=== PATIENT | female | born 1965 | race Hispanic/Latino ===

== ENCOUNTER 2017-04-09 21:22 | Emergency (ER) | payer MEDICARE ==
[2017-04-09 22:33] LABS: APPEARANCE,URINE Cloudy (CLEAR); BILIRUBIN,URINE Negative (NEGATIVE); COLOR,URINE Dark Yellow (YELLOW); GLUCOSE, URINE (UA) Negative (NEGATIVE); KETONES,URINE Negative (NEGATIVE); LEUKOCYTE ESTERASE ,URINE Large (NEGATIVE); NITRATE,URINE Positive (NEGATIVE); OCCULT BLOOD,URINE Negative (NEGATIVE); PROTEIN,URINE Negative (NEGATIVE)
[2017-04-09] MEDS ORDERED: LIDOCAINE HCL-MPF 1% 2ML VIAL ONE (22:42)
[2017-04-09] MEDS ORDERED: CEFTRIAXONE SODIUM 1 GM ONE (22:42)
[2017-04-09] MEDS ORDERED: ACETAMINOPHEN-CODEINE ELIXIR 5 ML UDCUP ONE (22:43)
[2017-04-09 22:45] LABS: BACTERIA,URINE Moderate /HPF (None Seen); MUCUS,URINE Moderate LPF (None Seen); RBC,URINE 0-1 /HPF (0-1); SQUAMOUS EPITHELIAL CELL,UR Few /LPF (0-2)
== END 2017-04-09 23:00 | disposition home or self-care (01) ==
LOC: EDH 21:22
DX: N39.0 Urinary tract infection, site not specified (principal); G43.909 Migraine, unspecified, not intractable, without status migrainosus; N18.9 Chronic kidney disease, unspecified; M32.9 Systemic lupus erythematosus, unspecified; Z88.6 Allergy status to analgesic agent; Z79.899 Other long term (current) drug therapy
CPT/HCPCS: 81001; 96372; 99283; J0696; J3490

== ENCOUNTER 2017-04-11 09:53 | Emergency (ER) | payer MEDICARE ==
[2017-04-11] MEDS ORDERED: KETOROLAC TROMETHAMINE 30MG/ML ONE (10:17)
[2017-04-11 10:45] LABS: APPEARANCE,URINE Clear (CLEAR); BILIRUBIN,URINE Negative (NEGATIVE); COLOR,URINE Orange (YELLOW); GLUCOSE, URINE (UA) Negative (NEGATIVE); KETONES,URINE Negative (NEGATIVE); LEUKOCYTE ESTERASE ,URINE Small (NEGATIVE); NITRATE,URINE Positive (NEGATIVE); OCCULT BLOOD,URINE Negative (NEGATIVE); PROTEIN,URINE Negative (NEGATIVE)
[2017-04-11 10:59] LABS: CREATININE 1.2 mg/dL (0.5-1.5); POTASSIUM 4.5 mmol/L (3.5-5.1)
[2017-04-11 11:21] LABS: RBC,URINE 0-1 /HPF (0-1); WBC,URINE 0-1 /HPF (0-1)
[2017-04-11 11:22] LABS: BACTERIA,URINE Few /HPF (None Seen)
[2017-04-11 11:23] LABS: HYALINE CASTS, URINE 0-1 /LPF (0-1 /LPF)
[2017-04-11 11:54] LABS: BASOPHILS % (AUTO) 0.6 % (0.0-5.0); EOSINOPHILS % (AUTO) 1.1 % (0.0-8.0); HEMATOCRIT 36.4 % (36-48); LYMPHOCYTES % (AUTO) 14.7 % (21.0-51.0); MEAN CORPUSCULAR HEMOGLOBIN 33.2 pg (27.0-33.0); MEAN CORPUSCULAR HGB CONC 35.6 g/dL (32.0-36.0); MEAN CORPUSCULAR VOLUME 93.3 fL (79-99); MONOCYTES % (AUTO) 8.2 % (3.0-13.0); NEUTROPHILS % (AUTO) 75.4 % (40.0-77.0); PLATELET COUNT (AUTO) 213 K/uL (130-400); RED CELL DISTRIBUTION WIDTH 12.7 % (11.0-15.5); WHITE BLOOD COUNT (AUTO) 9.2 K/uL (4.8-10.8)
[2017-04-11] MEDS ORDERED: LIDOCAINE HCL-MPF 1% 2ML VIAL ONE (12:11)
[2017-04-11] MEDS ORDERED: CEFTRIAXONE SODIUM 1 GM ONE (12:12)
== END 2017-04-11 12:38 | disposition home or self-care (01) ==
LOC: EDH 09:53
DX: S93.504A Unspecified sprain of right lesser toe(s), initial encounter (principal); N30.00 Acute cystitis without hematuria; G43.909 Migraine, unspecified, not intractable, without status migrainosus; L93.0 Discoid lupus erythematosus; Z88.6 Allergy status to analgesic agent; W22.03XA Walked into furniture, initial encounter; Y93.89 Activity, other specified; Y92.89 Other specified places as the place of occurrence of the external cause; Y99.8 Other external cause status
CPT/HCPCS: 36415; 73660; 80048; 81001; 85025; 96372; 96374; 99285; J0696; J1885; J3490

== ENCOUNTER 2017-04-18 14:01 | Emergency (ER) | payer MEDICARE ==
[2017-04-18] MEDS ORDERED: SODIUM CHLORIDE 0.9% 1000ML 1,000 ML IV ONE (14:18)
[2017-04-18] MEDS ORDERED: MORPHINE SULFATE 4 MG/1ML SYG ONE (15:17)
[2017-04-18 15:23] LABS: BASOPHILS % (AUTO) 2.3 % (0.0-5.0); HEMATOCRIT 39.9 % (36-48); LYMPHOCYTES % (AUTO) 24.2 % (21.0-51.0); MEAN CORPUSCULAR HEMOGLOBIN 31.6 pg (27.0-33.0); MEAN CORPUSCULAR HGB CONC 34.4 g/dL (32.0-36.0); MEAN CORPUSCULAR VOLUME 91.8 fL (79-99); MONOCYTES % (AUTO) 8.1 % (3.0-13.0); NEUTROPHILS % (AUTO) 64.4 % (40.0-77.0); PLATELET COUNT (AUTO) 250 K/uL (130-400); RED BLOOD CELL COUNT(AUTO) 4.35 MIL/uL (4.00-5.50); RED CELL DISTRIBUTION WIDTH 12.2 % (11.0-15.5); WHITE BLOOD COUNT (AUTO) 5.8 K/uL (4.8-10.8)
[2017-04-18 15:30] LABS: APPEARANCE,URINE Clear (CLEAR); BILIRUBIN,URINE Negative (NEGATIVE); COLOR,URINE Yellow (YELLOW); GLUCOSE, URINE (UA) Negative (NEGATIVE); KETONES,URINE Negative (NEGATIVE); LEUKOCYTE ESTERASE ,URINE Trace (NEGATIVE); NITRATE,URINE Negative (NEGATIVE); OCCULT BLOOD,URINE Negative (NEGATIVE); PROTEIN,URINE Negative (NEGATIVE); UROBILINOGEN,URINE 0.2 mg/dL (0.2-1.0)
[2017-04-18 15:38] LABS: BACTERIA,URINE Rare /HPF (None Seen); RBC,URINE None Seen /HPF (0-1); SQUAMOUS EPITHELIAL CELL,UR 0-2 /LPF (0-2); WBC,URINE None Seen /HPF (0-1)
[2017-04-18 16:16] LABS: CREATININE 1.2 mg/dL (0.5-1.5); POTASSIUM 4.2 mmol/L (3.5-5.1)
[2017-04-18 16:21] LABS: ALBUMIN 4.4 g/dL (3.5-5.0); BILIRUBIN,TOTAL 0.3 mg/dL (0.2-1.0); TOTAL PROTEIN, SERUM 8.2 g/dL (6.0-8.3)
== END 2017-04-18 16:45 | disposition home or self-care (01) ==
LOC: EDH 14:01
DX: F11.23 Opioid dependence with withdrawal (principal); R10.9 Unspecified abdominal pain; N39.0 Urinary tract infection, site not specified; G43.909 Migraine, unspecified, not intractable, without status migrainosus; M32.9 Systemic lupus erythematosus, unspecified; Z88.5 Allergy status to narcotic agent
CPT/HCPCS: 36415; 74021; 76856; 80053; 81001; 85025; 87804 ×2; 96361; 96374; 99285; J2270; J7030

== ENCOUNTER → 2017-08-14 | Outpatient (CLI) | payer MEDICARE | END | disposition home or self-care (01) | LOC: RAH 10:00 | PROVIDERS: ATTEND Urology | DX: J84.10 Pulmonary fibrosis, unspecified (principal); R31.29 Other microscopic hematuria; M47.896 Other spondylosis, lumbar region | CPT/HCPCS: 74176 ==

== ENCOUNTER 2018-03-17 22:09 | Emergency (ER) | payer MEDICARE ==
[2018-03-17] MEDS ORDERED: ACETAMINOPHEN EXTRA STRENGTH 500 MG TABLET ONE (22:34)
== END 2018-03-17 22:43 | disposition home or self-care (01) ==
LOC: EDH 22:09
DX: S93.491A Sprain of other ligament of right ankle, initial encounter (principal); Z85.841 Personal history of malignant neoplasm of brain; Z88.5 Allergy status to narcotic agent; X50.0XXA Overexertion from strenuous movement or load, initial encounter; Y93.89 Activity, other specified; Y92.009 Unspecified place in unspecified non-institutional (private) residence as the place of occurrence of the external cause; Y99.8 Other external cause status
CPT/HCPCS: 73590; 73610

== ENCOUNTER 2018-08-31 17:56 | Inpatient (IN) | payer MEDICARE ==
[~2018-08-31] VITALS: Ht 154.9 cm; Wt 84.5 kg
[2018-08-31] MEDS ORDERED: SODIUM CHLORIDE 0.9% 1000ML 1,000 ML IV ONE (18:18)
[2018-08-31 18:38] LABS: BASOPHILS % (AUTO) 0.9 % (0.0-5.0); EOSINOPHILS % (AUTO) 1.7 % (0.0-8.0); HEMATOCRIT 35.7 % (36-48); LYMPHOCYTES % (AUTO) 31.6 % (21.0-51.0); MEAN CORPUSCULAR HEMOGLOBIN 32.7 pg (27.0-33.0); MEAN CORPUSCULAR HGB CONC 34.1 g/dL (32.0-36.0); MEAN CORPUSCULAR VOLUME 95.8 fL (79-99); MONOCYTES % (AUTO) 10.2 % (3.0-13.0); NEUTROPHILS % (AUTO) 55.6 % (40.0-77.0); PLATELET COUNT (AUTO) 160 K/uL (130-400); RED BLOOD CELL COUNT(AUTO) 3.72 MIL/uL (4.00-5.50); RED CELL DISTRIBUTION WIDTH 13.6 % (11.0-15.5); WHITE BLOOD COUNT (AUTO) 5.2 K/uL (4.8-10.8)
[2018-08-31 18:39] LABS: APPEARANCE,URINE Clear (CLEAR); BILIRUBIN,URINE Negative (NEGATIVE); COLOR,URINE Yellow (YELLOW); GLUCOSE, URINE (UA) Negative (NEGATIVE); KETONES,URINE Negative (NEGATIVE); LEUKOCYTE ESTERASE ,URINE Trace (NEGATIVE); NITRATE,URINE Negative (NEGATIVE); OCCULT BLOOD,URINE Negative (NEGATIVE); PROTEIN,URINE Negative (NEGATIVE)
[2018-08-31 18:45] LABS: CREATININE 1.3 mg/dL (0.5-1.5)
[2018-08-31 18:46] LABS: AMPHET/METH SCREEN,URINE NEGATIVE (NEGATIVE); BARBITURATE SCREEN, URINE NEGATIVE (NEGATIVE); BENZODIAZEPINES SCREEN,URINE POSITIVE (NEGATIVE); CANNABINOID SCREEN,URINE NEGATIVE (NEGATIVE); COCAINE SCREEN,URINE NEGATIVE (NEGATIVE); OPIATE SCREEN,URINE NEGATIVE (NEGATIVE); PHENCYCLIDINE SCREEN,URINE NEGATIVE (NEGATIVE)
[2018-08-31 18:49] LABS: RBC,URINE 0-1 /HPF (0-1)
[2018-08-31 18:49] LABS: INR 0.94 (0.85-1.15); PARTIAL THROMBOPLASTIN TIME 19.8 SEC (26.3-35.5); PROTHROMBIN TIME 9.9 SEC (9.6-11.6)
[2018-08-31 18:50] LABS: BACTERIA,URINE Few /HPF (None Seen); SQUAMOUS EPITHELIAL CELL,UR Rare /HPF (0-2)
[2018-08-31 18:51] LABS: MUCUS,URINE Rare LPF (None Seen)
[2018-08-31 18:52] LABS: ALBUMIN 3.6 g/dL (3.5-5.0); BILIRUBIN,TOTAL 0.2 mg/dL (0.2-1.0); TOTAL PROTEIN, SERUM 6.5 g/dL (6.0-8.3)
[2018-08-31] MEDS ORDERED: PROPOFOL 1000 MG/100 ML 100 ML IV ONE ×2 (19:45→22:16)
[2018-08-31 19:53] LABS: ABG BASE EXCESS -2.1 mmol/L (-2.0-3.0); ABG HCO3 21.9 mmol/L (21.0-28.0); ABG OXYGEN SATURATION 99.3 % (95.0-99.0); ABG PCO2 35 mmHg (32-45)
[2018-08-31] MEDS ORDERED: LORAZEPAM 2 MG/ML 1 ML VIAL ONE (20:14)
[2018-08-31] MEDS: SODIUM CHLORIDE 0.9% 1000ML 1,000 ML IV SCH (20:32)
[2018-08-31] MEDS ORDERED: ONDANSETRON HCL 4 MG/2 ML VIAL IV PRN (20:45)
[2018-08-31] MEDS ORDERED: ACETAMINOPHEN 325 MG TAB PO PRN (20:45)
[2018-08-31] MEDS: ENOXAPARIN SODIUM 40 MG/0.4 ML SYRINGE SQ SCH (21:00)
[2018-09-01] VITALS (28 sets, daily range): BP systolic 101–149; BP diastolic 62–97
[2018-09-01] MEDS ORDERED: PROPOFOL 1000 MG/100 ML 100 ML IV ONE (00:52)
[2018-09-01 06:40] LABS: CREATININE 1.1 mg/dL (0.5-1.5); POTASSIUM 3.1 mmol/L (3.5-5.1)
[2018-09-01 06:52] LABS: EOSINOPHILS % (AUTO) 0.7 % (0.0-8.0); HEMATOCRIT 35.6 % (36-48); LYMPHOCYTES % (AUTO) 16.4 % (21.0-51.0); MEAN CORPUSCULAR HEMOGLOBIN 32.9 pg (27.0-33.0); MEAN CORPUSCULAR HGB CONC 34.5 g/dL (32.0-36.0); MEAN CORPUSCULAR VOLUME 95.5 fL (79-99); MONOCYTES % (AUTO) 8.3 % (3.0-13.0); NEUTROPHILS % (AUTO) 73.6 % (40.0-77.0); NUCLEATED RED BLOOD CELLS 0.1 % (0.0-0.19); PLATELET COUNT (AUTO) 147 K/uL (130-400); RED BLOOD CELL COUNT(AUTO) 3.73 MIL/uL (4.00-5.50); RED CELL DISTRIBUTION WIDTH 13.2 % (11.0-15.5)
[2018-09-01] MEDS ORDERED: LIDOCAINE HCL-MPF 1% 2ML VIAL IVP PRN (09:30)
[2018-09-01] MEDS: SODIUM CHLORIDE 0.9% 1000ML 1,000 ML IV SCH ×2 (09:47→19:55)
[2018-09-01] MEDS: FAMOTIDINE/PF 20 MG/2 ML VIAL IV SCH (09:47)
[2018-09-01] MEDS: ENOXAPARIN SODIUM 40 MG/0.4 ML SYRINGE SQ SCH (09:47)
[2018-09-01] MEDS: POTASSIUM CHLORIDE 20MEQ/100ML 100 ML IV PRN ×2 (10:01→12:42)
[2018-09-01 10:17] LABS: ABG BASE EXCESS -0.3 mmol/L (-2.0-3.0); ABG HCO3 24.1 mmol/L (21.0-28.0); ABG OXYGEN SATURATION 97.3 % (95.0-99.0); ABG PCO2 39 mmHg (32-45)
[2018-09-01] MEDS: LEVOFLOXACIN 500 MG/D5W 100 ML 100 ML IV SCH ×2 (10:30→12:43)
[2018-09-01] MEDS: IPRATROPIUM/ALBUTEROL SULFATE 3 ML SOLUTION IH SCH ×3 (12:35→23:26)
[2018-09-01] MEDS: ACETAMINOPHEN 325 MG TAB PO PRN ×3 (14:31→23:05)
[2018-09-01] MEDS ORDERED: POTASSIUM CHLORIDE 10% ELIXIR 20 MEQ/15 ML UDCUP PO PRN (20:00)
[2018-09-01] MEDS: POTASSIUM CHLORIDE 20 MEQ ERTAB PO PRN ×2 (20:32→23:02)
[2018-09-02 03:42] VITALS: BP 124/75
[2018-09-02 04:12] LABS: BASOPHILS % (AUTO) 0.5 % (0.0-5.0); EOSINOPHILS % (AUTO) 0.6 % (0.0-8.0); HEMATOCRIT 32.7 % (36-48); MEAN CORPUSCULAR HEMOGLOBIN 33.2 pg (27.0-33.0); MEAN CORPUSCULAR HGB CONC 34.6 g/dL (32.0-36.0); MEAN CORPUSCULAR VOLUME 95.8 fL (79-99); MONOCYTES % (AUTO) 9.7 % (3.0-13.0); NEUTROPHILS % (AUTO) 75.2 % (40.0-77.0); PLATELET COUNT (AUTO) 137 K/uL (130-400); RED BLOOD CELL COUNT(AUTO) 3.41 MIL/uL (4.00-5.50); RED CELL DISTRIBUTION WIDTH 13.5 % (11.0-15.5); WHITE BLOOD COUNT (AUTO) 8.7 K/uL (4.8-10.8)
[2018-09-02 04:17] LABS: POTASSIUM 3.9 mmol/L (3.5-5.1)
[2018-09-02] MEDS: ACETAMINOPHEN 325 MG TAB PO PRN (04:54)
[2018-09-02] MEDS: IPRATROPIUM/ALBUTEROL SULFATE 3 ML SOLUTION IH SCH (06:35)
[2018-09-02 07:00] VITALS: BP 129/80
[2018-09-02] MEDS: FAMOTIDINE/PF 20 MG/2 ML VIAL IV SCH (08:23)
--- NOTE | 2018-09-02 09:00 | NUR ---
DYSPHAGIA EVAL COMPLETE. -S/S OF ASPIRATION. RECOMMEND REGULAR, THIN LIQUID DIET; PILLS WHOLE WITH LIQUIDS. PATIENT INFORMATION: Pt IS A 53 Y.O. FEMALE REFERRED FOR A BEDSIDE DYSPHAGIA EVALUATION SECONDARY TO S/P EXTUBATION. Pt AAOX3 AND COOPERATIVE DURING THE EVALUATION. Pt REPORTS THAT SHE HAS BEEN DOING WELL SINCE EXTUBATION. Pt CURRENTLY ON CLEAR LIQUID DIET. Pt CURRENTLY ADMITTED SECONDARY TO ALTERED MENTAL STATUS, HYPOXIA, BRADYCARDIA. Pt HAS A PAST MEDICAL HISTORY SIGNIFICANT FOR LUPUS, BRAIN TUMOR, MIGRAINE, RHEUMATOID ARTHRITIS, CONSTIPATION, URINARY INCONTINENCE, DEPRESSION/ANXIETY. EVALUATION: SWALLOW FUNCTION AND EFFICIENCY WITHIN FUNCTIONAL LIMITS. ORAL MOTOR STRENGTH, COORDINATION, AND ROM WITHIN FUNCTIONAL LIMITS. LARYNGEAL ELEVATION/EXCURSION STRONG WITH TIMELY PHARYNGEAL RESPONSE. NO OVERT SIGNS OR SYMPTOMS OF ASPIRATION PRESENT AT BEDSIDE. VOCAL QUALITY CLEAR WITH NO THROAT CLEAR OR COUGH RESPONSE PRESENT. RECOMMENDATIONS: 1. REGULAR TEXTURE, THIN LIQUID DIET; PILLS WHOLE WITH LIQUIDS. 2. COMPENSATORY STRATEGIES (PROPHYLAXIS): *SEATED AT 90 DEGREE ANGLE G-CODES SWALLOWING: [id number] Addendum: 09/02/18 at [address] Amended: Links added.
[2018-09-02] MEDS ORDERED: ENOXAPARIN SODIUM 40 MG/0.4 ML SYRINGE SQ SCH (10:00)
[2018-09-02 10:31] VITALS: BP 132/84
--- NOTE | 2018-09-02 14:33 | NUR ---
DC PLAN PATIENT DISCHARGED HOME ALREADY GONE NO NEEDS VERBALIZED BY NURSING STAFF. Addendum: 09/02/18 at 1434 by SANJUANITA LECHUGA RN CM Amended: Links added.
== END 2018-09-02 13:03 | disposition home or self-care (01) | DRG 917 ==
LOC: EDH 17:56 → EDHIP 20:10 → 2CH 09-01 07:58 → 2AH 09-01 18:53
PROVIDERS: ADMIT Internal Medicine; ATTEND Internal Medicine
PROC: 5A1935Z Respiratory Ventilation, Less than 24 Consecutive Hours (ICD-10-PCS; principal; 2018-08-31)
PROC: 0BH17EZ Insertion of Endotracheal Airway into Trachea, Via Natural or Artificial Opening (ICD-10-PCS; 2018-08-31)
DX: T40.601A Poisoning by unspecified narcotics, accidental (unintentional), initial encounter (principal); J96.01 Acute respiratory failure with hypoxia; R00.1 Bradycardia, unspecified; M06.9 Rheumatoid arthritis, unspecified; F32.9 Major depressive disorder, single episode, unspecified; F41.9 Anxiety disorder, unspecified; G43.909 Migraine, unspecified, not intractable, without status migrainosus; G89.4 Chronic pain syndrome; K59.00 Constipation, unspecified; R32 Unspecified urinary incontinence; M32.9 Systemic lupus erythematosus, unspecified; Z88.5 Allergy status to narcotic agent; Z88.8 Allergy status to other drugs, medicaments and biological substances; Y92.89 Other specified places as the place of occurrence of the external cause
CPT/HCPCS: 31500; 36415; 36600; 70450; 71045; 80048; 80053; 80305; 81001; 82550; 82803; 84132; 84484; 85025; 85610; 85730; 92610; 93005; 94002; 94003; 94640; 94664; 99291; G0378; J1650; J1956; J2060; J2704; J3480; J3490; J7030

== ENCOUNTER → 2019-03-02 | Outpatient (CLI) | payer MEDICARE | END | disposition home or self-care (01) | LOC: RAH 08:43 | PROVIDERS: ATTEND Physician Assistant Medical | DX: N64.4 Mastodynia (principal); N63.10 Unspecified lump in the right breast, unspecified quadrant | CPT/HCPCS: 76641; 77066 ==

== ENCOUNTER 2019-06-29 23:26 | Inpatient (IN) | payer MEDICARE ==
[~2019-06-29] VITALS: Ht 154.9 cm; Wt 86.8 kg
[2019-06-30] VITALS (7 sets, daily range): BP systolic 109–156; BP diastolic 61–85
[2019-06-30] MEDS ORDERED: ALBUTEROL INHALER 90MCG/INH IH ONE (00:15)
[2019-06-30] MEDS ORDERED: AZITHROMYCIN 500MG+NS 250ML 250 ML IV ONE (00:15)
[2019-06-30] MEDS ORDERED: CEFTRIAXONE SODIUM 2 GM VIAL ONE (00:15)
[2019-06-30 01:14] LABS: BASOPHILS % (AUTO) 0.5 % (0.0-5.0); EOSINOPHILS % (AUTO) 1.6 % (0.0-8.0); HEMATOCRIT 37.3 % (36-48); LYMPHOCYTES % (AUTO) 27.8 % (21.0-51.0); MEAN CORPUSCULAR HGB CONC 34.6 g/dL (32.0-36.0); MEAN CORPUSCULAR VOLUME 92.6 fL (79-99); MONOCYTES % (AUTO) 13.8 % (3.0-13.0); NEUTROPHILS % (AUTO) 56.2 % (40.0-77.0); PLATELET COUNT (AUTO) 232 K/uL (130-400); RED BLOOD CELL COUNT(AUTO) 4.03 MIL/uL (4.00-5.50); RED CELL DISTRIBUTION WIDTH 12.6 % (11.0-15.5); WHITE BLOOD COUNT (AUTO) 7.5 K/uL (4.8-10.8)
[2019-06-30 01:16] LABS: BILIRUBIN,URINE Negative (NEGATIVE); COLOR,URINE Yellow (YELLOW); GLUCOSE, URINE (UA) Negative (NEGATIVE); KETONES,URINE Negative (NEGATIVE); LEUKOCYTE ESTERASE ,URINE Negative (NEGATIVE); NITRATE,URINE Negative (NEGATIVE); OCCULT BLOOD,URINE Negative (NEGATIVE); PROTEIN,URINE Negative (NEGATIVE); UROBILINOGEN,URINE 0.2 mg/dL (0.2-1.0)
[2019-06-30 01:17] LABS: APPEARANCE,URINE CLEAR (CLEAR)
[2019-06-30 01:29] LABS: ABG BASE EXCESS -2.1 mmol/L (-2.0-3.0); ABG HCO3 22.3 mmol/L (21.0-28.0); ABG OXYGEN SATURATION 93.3 % (95.0-99.0); ABG PCO2 37 mmHg (32-45)
[2019-06-30 01:30] LABS: INR 0.89 (0.85-1.15); PARTIAL THROMBOPLASTIN TIME 23.8 SEC (26.3-35.5); PROTHROMBIN TIME 9.7 SEC (9.6-11.6)
[2019-06-30 01:39] LABS: ALANINE AMINOTRANSFERASE 68 U/L (12-78); ALBUMIN 4.2 g/dL (3.5-5.0); ASPARTATE AMINOTRANSFERASE 47 U/L (10-37); BILIRUBIN,TOTAL 0.4 mg/dL (0.2-1.0); CARBON DIOXIDE 25 mmol/L (21-32); CHLORIDE 99 mmol/L (101-111); CREATINE KINASE, TOTAL 118 U/L (21-232); CREATININE 1.5 mg/dL (0.5-1.5); GLOMERULAR FILTR. RATE CALC 38 mL/min (>60); GLUCOSE,RANDOM 116 mg/dL (70-105); LIPASE 159 U/L (114-286); POTASSIUM 3.3 mmol/L (3.5-5.1); SODIUM SERUM 135 mmol/L (136-145); TOTAL PROTEIN, SERUM 7.7 g/dL (6.0-8.3); UREA NITROGEN, BLOOD 23 mg/dL (7-18)
[2019-06-30 01:41] LABS: B-TYPE NATRIURETIC PEPTIDE < 5 pg/mL (0-100)
[2019-06-30] MEDS: AZITHROMYCIN 500MG+NS 250ML 250 ML IV SCH (03:45)
[2019-06-30] MEDS ORDERED: POTASSIUM CHLORIDE 10% ELIXIR 20 MEQ/15 ML UDCUP PO PRN (03:45)
[2019-06-30] MEDS: SODIUM CHLORIDE 0.9% 1000ML 1,000 ML IV SCH (03:45)
[2019-06-30] MEDS ORDERED: POTASSIUM CHLORIDE 10MEQ/100ML 100 ML IV PRN (03:45)
[2019-06-30] MEDS ORDERED: ACETAMINOPHEN 325 MG TAB PO PRN (03:45)
[2019-06-30] MEDS ORDERED: LIDOCAINE HCL-MPF 1% 2ML VIAL IV PRN (03:45)
[2019-06-30] MEDS ORDERED: MAGNESIUM 2GM PREMIX 50ML 50 ML IV PRN (03:45)
[2019-06-30] MEDS ORDERED: ONDANSETRON HCL 4 MG/2 ML VIAL IV PRN ×2 (03:45→04:15)
[2019-06-30] MEDS ORDERED: ALBUTEROL INHALER 90MCG/INH IH PRN (03:45)
[2019-06-30] MEDS: NITROGLYCERIN 1GM/1 INCH PACKET TD SCH ×3 (03:45→19:45)
[2019-06-30] MEDS ORDERED: HYDRALAZINE HCL 20 MG/ML VIAL IV PRN (03:45)
[2019-06-30] MEDS ORDERED: POTASSIUM CHLORIDE 10% ELIXIR 20 MEQ/15 ML UDCUP ONE (05:16)
[2019-06-30] MEDS ORDERED: NITROGLYCERIN 1GM/1 INCH PACKET TD ONE (05:16)
[2019-06-30] MEDS ORDERED: ACETAMINOPHEN 325 MG TAB ONE (05:24)
[2019-06-30] MEDS: CEFTRIAXONE SODIUM 1 GM IVP SCH ×2 (06:18→16:37)
--- NOTE | 2019-06-30 06:19 | NUR ---
patient arrived from ER, awake alert and oriented. Pt is stable, no complains of being in distress or in any forms of pain. did not bring home meds, patient stated partner will bring home meds later today. will pass to am nurse
[2019-06-30 07:10] LABS: BASOPHILS % (AUTO) 0.4 % (0.0-5.0); EOSINOPHILS % (AUTO) 1.2 % (0.0-8.0); HEMATOCRIT 35.2 % (36-48); LYMPHOCYTES % (AUTO) 20.8 % (21.0-51.0); MEAN CORPUSCULAR HEMOGLOBIN 32.2 pg (27.0-33.0); MEAN CORPUSCULAR HGB CONC 34.7 g/dL (32.0-36.0); MEAN CORPUSCULAR VOLUME 92.9 fL (79-99); MONOCYTES % (AUTO) 13.5 % (3.0-13.0); NEUTROPHILS % (AUTO) 63.9 % (40.0-77.0); PLATELET COUNT (AUTO) 227 K/uL (130-400); RED BLOOD CELL COUNT(AUTO) 3.79 MIL/uL (4.00-5.50); RED CELL DISTRIBUTION WIDTH 12.7 % (11.0-15.5); WHITE BLOOD COUNT (AUTO) 8.9 K/uL (4.8-10.8)
[2019-06-30 07:32] LABS: CHOLESTEROL 177 mg/dL (<200); CREATINE KINASE, TOTAL 81 U/L (21-232); HDL CHOLESTEROL 35 mg/dL (35-85); LDL DIRECT 112 mg/dL (0-99); MYOGLOBIN 57 ng/mL (10-92); TRIGLYCERIDES 173 mg/dL (30-200); TROPONIN I < 0.04 ng/mL (0.00-0.06)
[2019-06-30 07:33] LABS: ALBUMIN 3.6 g/dL (3.5-5.0); BILIRUBIN,TOTAL 0.3 mg/dL (0.2-1.0); CREATININE 1.4 mg/dL (0.5-1.5); POTASSIUM 3.1 mmol/L (3.5-5.1)
[2019-06-30 07:38] LABS: HEMOGLOBIN A1C 5.8 % (4.0-6.0)
[2019-06-30] MEDS: FAMOTIDINE/PF 20 MG/2 ML VIAL IV SCH ×2 (07:41→20:31)
[2019-06-30] MEDS ORDERED: PHARMACY COMMUNICATION MISC SCH (08:00)
[2019-06-30] MEDS: ASPIRIN 81MG TAB.CHEW PO SCH (08:08)
[2019-06-30] MEDS: MORPHINE SULFATE 2 MG/ML 1ML SYG IV PRN (08:27)
[2019-06-30] MEDS: ALBUTEROL INHALER 90MCG/INH IH SCH ×3 (08:27→16:54)
[2019-06-30 08:49] LABS: LACTATE DEHYDROGENASE 251 U/L (81-234)
[2019-06-30] MEDS ORDERED: FAMOTIDINE/PF 20 MG/2 ML VIAL IV SCH (09:00)
[2019-06-30] MEDS: POTASSIUM CHLORIDE 20 MEQ ERTAB PO PRN ×2 (09:07→12:22)
[2019-06-30] MEDS: ACETAMINOPHEN 325 MG TAB PO PRN ×2 (12:32→19:02)
[2019-06-30 12:43] LABS: CREATINE KINASE, TOTAL 97 U/L (21-232); MYOGLOBIN 53 ng/mL (10-92); TROPONIN I < 0.04 ng/mL (0.00-0.06)
--- NOTE | 2019-06-30 13:52 | NUR ---
DR. Imtiaz HANNON SPEAKING WITH PT. AND EXPLAINING PLAN OF CARE/ANSWERING QUESTIONS.
--- NOTE | 2019-06-30 14:35 | NUR ---
[facility] CM spoke to pt's daughter Avril [phone] discussed dc plans. Pt is independent prior to admission, lives at home alone, daughter and son lives close by. Pt has a provider daily unable to recall number of hours, walker, shower chair, nebulizer machine, home health unable to recall company name. Denies any other equipments/services. Feels safe to go back home, son and daughter able to assist with transportation and needs as necessary. DC plan to home once stable. CM to cont to follow up. Addendum: 06/30/19 at 1438 by MELL SOUZA LVN CM Amended: Links added.
[2019-06-30] MEDS ORDERED: TIZANIDINE HCL 2 MG TABLET PO PRN (15:15)
[2019-06-30] MEDS ORDERED: TRAMADOL HCL 50 MG TABLET PO PRN (15:15)
[2019-06-30] MEDS ORDERED: NAPROXEN 500 MG TABLET PO PRN (15:15)
[2019-06-30] MEDS ORDERED: MECLIZINE HCL 25 MG TABLET PO PRN (15:15)
[2019-06-30] MEDS ORDERED: NAPR500T6 PO (15:33)
[2019-06-30] MEDS ORDERED: AMLO2.5T4 PO (15:33)
[2019-06-30] MEDS ORDERED: HYDR200T82 PO (15:33)
[2019-06-30] MEDS ORDERED: FOLI1TAB85 PO (15:33)
[2019-06-30] MEDS ORDERED: ALPR2TAB7 PO (15:33)
[2019-06-30] MEDS ORDERED: TIZA4CAP8 PO (15:33)
[2019-06-30] MEDS ORDERED: TOPI200C6 PO (15:33)
[2019-06-30] MEDS ORDERED: CEVI30CA7 PO (15:33)
[2019-06-30] MEDS ORDERED: HYDR-2534 PO (15:33)
[2019-06-30] MEDS ORDERED: VITAMIN D2 PO (15:33)
[2019-06-30] MEDS ORDERED: TRAZ-187 PO (15:33)
[2019-06-30] MEDS ORDERED: SUMA100T16 PO (15:33)
[2019-06-30] MEDS ORDERED: VORT5TAB PO (15:33)
[2019-06-30] MEDS ORDERED: TRAM50TA4 PO (15:33)
[2019-06-30] MEDS ORDERED: BREX1TAB PO (15:33)
[2019-06-30] MEDS ORDERED: ATOR20TA65 PO (15:33)
[2019-06-30] MEDS ORDERED: MECL-160 PO (15:33)
[2019-06-30] MEDS ORDERED: LUBI24CA2 PO (15:33)
[2019-06-30] MEDS ORDERED: ONDA8TAB65 PO ×2 (15:33→19:27)
[2019-06-30] MEDS ORDERED: EREN70AU2 SQ (15:33)
[2019-06-30] MEDS ORDERED: DULO30CA2 PO (15:33)
[2019-06-30] MEDS: ALPRAZOLAM 1 MG TAB PO SCH ×2 (16:30→20:30)
[2019-06-30] MEDS ORDERED: ALPRAZOLAM 1 MG TAB ONE (16:32)
[2019-06-30] MEDS ORDERED: ONDANSETRON 4 MG TABLET PO PRN (16:45)
[2019-06-30] MEDS: SUMATRIPTAN SUCCINATE 25 MG TABLET PO SCH (16:46)
[2019-06-30] MEDS: LUBIPROSTONE 24 MCG CAP PO SCH (20:30)
[2019-06-30] MEDS: METHYLPREDNISOLONE SOD SUCC 40MG/ML 1ML IVP SCH (20:30)
[2019-06-30] MEDS: TRAZODONE HCL 100 MG TABLET PO SCH (20:30)
[2019-06-30] MEDS: ATORVASTATIN CALCIUM 20 MG TABLET PO SCH (20:30)
[2019-06-30] MEDS: CEVIMELINE HCL 30 MG PO SCH (20:50)
[2019-06-30] MEDS ORDERED: ALPRAZOLAM 1 MG TAB PO SCH (21:00)
[2019-07-01] MEDS: NITROGLYCERIN 1GM/1 INCH PACKET TD SCH ×3 (03:11→20:40)
[2019-07-01 04:06] VITALS: BP 110/69
[2019-07-01] MEDS: CEFTRIAXONE SODIUM 1 GM IVP SCH ×2 (04:23→13:51)
[2019-07-01] MEDS: AZITHROMYCIN 500MG+NS 250ML 250 ML IV SCH (04:23)
[2019-07-01] MEDS: SODIUM CHLORIDE 0.9% 1000ML 1,000 ML IV SCH (04:24)
[2019-07-01 05:39] LABS: CREATININE 1.3 mg/dL (0.5-1.5); MAGNESIUM 2.3 mg/dL (1.80-2.40); POTASSIUM 3.7 mmol/L (3.5-5.1)
[2019-07-01 07:48] LABS: ABG BASE EXCESS -3.3 mmol/L (-2.0-3.0); ABG HCO3 21.4 mmol/L (21.0-28.0); ABG OXYGEN SATURATION 95.2 % (95.0-99.0); ABG PCO2 38 mmHg (32-45)
[2019-07-01 08:00] VITALS: BP 138/67
--- NOTE | 2019-07-01 08:40 | NUR ---
SITTING UP IN BED WITH HOB AT SEMI-COOPER'S POSITION, RESP.'S EVEN AND UNLABORED. ON ROOM AIR. DENIES ANY CURRENT SOB, DENIES ANY CURRENT PAIN. ABD SOFT WITH (+) BOWEL SOUNDS, DENIES ANY C/O N/V. VOIDS, W/O C/O. COMPLETE ASSESSMENT DONE. CALL LIGHT WITHIN REACH, VERBALIZED ABILITY TO USE. BED LOW, SIDE RAILS UP X2.
[2019-07-01] MEDS: Vitamin B Complex/Vit C/Folic Acid PO SCH (08:44)
[2019-07-01] MEDS: METHYLPREDNISOLONE SOD SUCC 40MG/ML 1ML IVP SCH ×2 (08:44→20:39)
[2019-07-01] MEDS: HYDROXYCHLOROQUINE SULFATE 200 MG TAB PO SCH (08:44)
[2019-07-01] MEDS: FAMOTIDINE/PF 20 MG/2 ML VIAL IV SCH ×2 (08:44→20:39)
[2019-07-01] MEDS: ASPIRIN 81MG TAB.CHEW PO SCH (08:45)
[2019-07-01] MEDS: HYDROCHLOROTHIAZIDE 25 MG TABLET PO SCH (08:46)
[2019-07-01] MEDS: AMLODIPINE BESYLATE 2.5 MG TAB PO SCH (08:46)
[2019-07-01] MEDS: TOPIRAMATE 100 MG TAB PO SCH (08:46)
[2019-07-01] MEDS: SUMATRIPTAN SUCCINATE 25 MG TABLET PO SCH ×2 (08:46→09:00)
[2019-07-01] MEDS: ALPRAZOLAM 1 MG TAB PO SCH ×3 (08:46→20:39)
[2019-07-01] MEDS: DULOXETINE HCL 30 MG CAP PO SCH (08:46)
[2019-07-01] MEDS: LUBIPROSTONE 24 MCG CAP PO SCH ×2 (08:46→20:40)
[2019-07-01] MEDS: VORTIOXETINE HYDROBROMIDE 5 MG PO SCH (08:47)
[2019-07-01] MEDS: CEVIMELINE HCL 30 MG PO SCH ×2 (08:47→20:41)
[2019-07-01] MEDS: ALBUTEROL INHALER 90MCG/INH IH SCH ×5 (08:47→23:45)
[2019-07-01] MEDS: BREXPIPRAZOLE 1 MG PO SCH (08:47)
[2019-07-01] MEDS ORDERED: ERGOCALCIFEROL (VITAMIN D2) 50,000 UNIT CAPSULE PO SCH (09:00)
--- NOTE | 2019-07-01 09:49 | NUR ---
EMOTIONAL SUPPORT SW recd call from pt who was crying and expressed concerns for care she recd. Sw provided emotional support and contacted Kristie Patel, Pt Advocate to f/u with pt.
[2019-07-01 12:32] VITALS: BP 133/81
[2019-07-01] MEDS: MORPHINE SULFATE 2 MG/ML 1ML SYG IV PRN (14:11)
[2019-07-01 16:37] VITALS: BP 132/76
[2019-07-01 19:38] VITALS: BP 134/72
[2019-07-01] MEDS: ATORVASTATIN CALCIUM 20 MG TABLET PO SCH (20:39)
[2019-07-01] MEDS: TRAZODONE HCL 100 MG TABLET PO SCH (20:40)
[2019-07-01 23:50] VITALS: BP 132/90
[2019-07-02] MEDS: MORPHINE SULFATE 2 MG/ML 1ML SYG IV PRN (00:57)
[2019-07-02] MEDS: NITROGLYCERIN 1GM/1 INCH PACKET TD SCH ×2 (03:45→11:45)
[2019-07-02] MEDS: ALBUTEROL INHALER 90MCG/INH IH SCH (03:45)
[2019-07-02] MEDS: AZITHROMYCIN 500MG+NS 250ML 250 ML IV SCH (04:18)
[2019-07-02] MEDS: CEFTRIAXONE SODIUM 1 GM IVP SCH (04:18)
[2019-07-02 04:22] VITALS: BP 127/67
[2019-07-02 05:11] LABS: BASOPHILS % (AUTO) 0.3 % (0.0-5.0); LYMPHOCYTES % (AUTO) 9.7 % (21.0-51.0); MEAN CORPUSCULAR HEMOGLOBIN 32.2 pg (27.0-33.0); MEAN CORPUSCULAR HGB CONC 33.6 g/dL (32.0-36.0); MEAN CORPUSCULAR VOLUME 95.7 fL (79-99); MONOCYTES % (AUTO) 7.1 % (3.0-13.0); NEUTROPHILS % (AUTO) 82.4 % (40.0-77.0); PLATELET COUNT (AUTO) 260 K/uL (130-400); RED BLOOD CELL COUNT(AUTO) 3.76 MIL/uL (4.00-5.50); RED CELL DISTRIBUTION WIDTH 13.7 % (11.0-15.5); WHITE BLOOD COUNT (AUTO) 11.1 K/uL (4.8-10.8)
[2019-07-02 05:31] LABS: CREATININE 1.1 mg/dL (0.5-1.5); CRP QUANTITATIVE 5.6 mg/L (0.00-9.0); MAGNESIUM 2.2 mg/dL (1.80-2.40); PHOSPHORUS 2.3 mg/dL (2.5-4.9); POTASSIUM 3.9 mmol/L (3.5-5.1)
[2019-07-02 08:00] VITALS: BP 126/81
[2019-07-02] MEDS ORDERED: FAMOTIDINE 20MG TAB 20 MG TAB ONE (08:31)
[2019-07-02] MEDS: METHYLPREDNISOLONE SOD SUCC 40MG/ML 1ML IVP SCH (08:35)
[2019-07-02] MEDS: TOPIRAMATE 100 MG TAB PO SCH (08:36)
[2019-07-02] MEDS: HYDROCHLOROTHIAZIDE 25 MG TABLET PO SCH (08:36)
[2019-07-02] MEDS: ASPIRIN 81MG TAB.CHEW PO SCH (08:36)
[2019-07-02] MEDS: LUBIPROSTONE 24 MCG CAP PO SCH (08:36)
[2019-07-02] MEDS: Vitamin B Complex/Vit C/Folic Acid PO SCH (08:36)
[2019-07-02] MEDS: DULOXETINE HCL 30 MG CAP PO SCH (08:37)
[2019-07-02] MEDS: SUMATRIPTAN SUCCINATE 25 MG TABLET PO SCH (08:37)
[2019-07-02] MEDS: CEVIMELINE HCL 30 MG PO SCH (08:37)
[2019-07-02] MEDS: ALPRAZOLAM 1 MG TAB PO SCH ×2 (08:37→14:33)
[2019-07-02] MEDS: AMLODIPINE BESYLATE 2.5 MG TAB PO SCH (08:37)
[2019-07-02] MEDS: HYDROXYCHLOROQUINE SULFATE 200 MG TAB PO SCH (08:37)
[2019-07-02] MEDS: BREXPIPRAZOLE 1 MG PO SCH (08:38)
[2019-07-02] MEDS: FAMOTIDINE/PF 20 MG/2 ML VIAL IV SCH (08:38)
[2019-07-02] MEDS: VORTIOXETINE HYDROBROMIDE 5 MG PO SCH (08:38)
[2019-07-02 12:27] VITALS: BP 126/71
--- NOTE | 2019-07-02 13:00 | NUR ---
PATIENT DID NOT BECOME SOB OR REQUIRE O2 WHEN WALKING IN ROOM DURING EVALUATION BY RT FOR HOME O2. PATIENT O2 SAT >95% ON RA WHILE TALKING
[2019-07-30] MEDS ORDERED: ERENUMAB AOOE 140 MG SQ SCH (09:00)
== END 2019-07-02 15:54 | disposition home or self-care (01) | DRG 193 ==
LOC: EDH 23:26 → EDHIP 06-30 04:08 → 2DH 06-30 06:10
PROVIDERS: ADMIT Internal Medicine; ATTEND Internal Medicine
DX: J18.1 Lobar pneumonia, unspecified organism (principal); J96.01 Acute respiratory failure with hypoxia; J44.1 Chronic obstructive pulmonary disease with (acute) exacerbation; J44.0 Chronic obstructive pulmonary disease with (acute) lower respiratory infection; N17.9 Acute kidney failure, unspecified; F13.20 Sedative, hypnotic or anxiolytic dependence, uncomplicated; F41.9 Anxiety disorder, unspecified; G43.909 Migraine, unspecified, not intractable, without status migrainosus; N18.3 Chronic kidney disease, stage 3 (moderate); E87.6 Hypokalemia; F32.9 Major depressive disorder, single episode, unspecified; M32.9 Systemic lupus erythematosus, unspecified; M35.00 Sjogren syndrome, unspecified; R32 Unspecified urinary incontinence; E11.22 Type 2 diabetes mellitus with diabetic chronic kidney disease; E66.9 Obesity, unspecified; I12.9 Hypertensive chronic kidney disease with stage 1 through stage 4 chronic kidney disease, or unspecified chronic kidney disease; R68.3 Clubbing of fingers; E78.5 Hyperlipidemia, unspecified; M06.9 Rheumatoid arthritis, unspecified; Z86.011 Personal history of benign neoplasm of the brain; Z03.818 Encounter for observation for suspected exposure to other biological agents ruled out; Z82.3 Family history of stroke; Z83.3 Family history of diabetes mellitus; Z98.51 Tubal ligation status; Z88.5 Allergy status to narcotic agent; Z68.36 Body mass index [BMI] 36.0-36.9, adult
CPT/HCPCS: 36415; 36600; 71045; 80048; 80053; 80061; 81003; 82550; 82728; 82803; 83036; 83605; 83615; 83690; 83735; 83874; 83880; 84100; 84145; 84484; 85025; 85378; 85610; 85651; 85730; 86140; 87040; 87088; 87633; 87635; 87804; 93005; 94760; 99291; G0378; J0456; J0696; J2920; J3490; J7030

== ENCOUNTER 2020-07-22 16:11 | Emergency (ER) | payer MEDICARE ==
[~2020-07-22 16:11] MED LIST: ALPR2TAB7 PO; AMLO2.5T4 PO; ATOR20TA65 PO; BREX1TAB PO; CEVI30CA7 PO; DULO30CA2 PO; EREN70AU2 SQ; FOLI1TAB85 PO; HYDR200T82 PO; HYDR50TA PO; LUBI24CA2 PO; MECL-160 PO; ONDA8TAB65 PO; SUMA100T16 PO; TIZA4CAP8 PO; TOPI200C6 PO; TRAM50TA4 PO; TRAZ-187 PO; VITAMIN D2 PO; VORT5TAB PO
[2020-07-22] MEDS ORDERED: SODIUM CHLORIDE 0.9% 1000ML 1,000 ML IV ONE (16:12)
[2020-07-22] MEDS ORDERED: IPRATROPIUM/ALBUTEROL SULFATE 3 ML SOLUTION IH ONE (16:32)
[2020-07-22] MEDS ORDERED: ALBUTEROL SULFATE 0.083% 2.5 MG/3 ML INH IH ONE (16:34)
[2020-07-22] MEDS ORDERED: ACETAMINOPHEN EXTRA STRENGTH 500 MG TABLET ONE (16:39)
[2020-07-22] MEDS ORDERED: DEXAMETHASONE SOD PHOSPHATE 10MG/ML 1ML VIAL ONE (16:39)
[2020-07-22] MEDS ORDERED: LORAZEPAM 2 MG/ML 1 ML VIAL ONE (16:40)
[2020-07-22 17:55] LABS: BASOPHILS % (AUTO) 0.2 % (0.0-5.0); HEMATOCRIT 41.8 % (36-48); LYMPHOCYTES % (AUTO) 9.7 % (21.0-51.0); MEAN CORPUSCULAR HEMOGLOBIN 32.5 pg (27.0-33.0); MEAN CORPUSCULAR HGB CONC 34.9 g/dL (32.0-36.0); MEAN CORPUSCULAR VOLUME 93.1 fL (79-99); MONOCYTES % (AUTO) 4.9 % (3.0-13.0); NEUTROPHILS % (AUTO) 84.8 % (40.0-77.0); PLATELET COUNT (AUTO) 255 K/uL (130-400); RED BLOOD CELL COUNT(AUTO) 4.49 MIL/uL (4.00-5.50); RED CELL DISTRIBUTION WIDTH 13.6 % (11.0-15.5)
[2020-07-22 18:03] LABS: CREATININE 1.2 mg/dL (0.5-1.5); POTASSIUM 3.7 mmol/L (3.5-5.1)
[2020-07-22 18:12] LABS: ALBUMIN 4.4 g/dL (3.5-5.0); BILIRUBIN,TOTAL 0.4 mg/dL (0.2-1.0); TOTAL PROTEIN, SERUM 8.8 g/dL (6.0-8.3)
[2020-07-22 18:56] LABS: APPEARANCE,URINE Clear (CLEAR); BILIRUBIN,URINE Negative (NEGATIVE); COLOR,URINE Yellow (YELLOW); GLUCOSE, URINE (UA) Negative (NEGATIVE); KETONES,URINE Negative (NEGATIVE); LEUKOCYTE ESTERASE ,URINE Trace (NEGATIVE); NITRATE,URINE Negative (NEGATIVE); OCCULT BLOOD,URINE Negative (NEGATIVE); PH,URINE 5.5 (5.0-8.0); PROTEIN,URINE Negative (NEGATIVE); UROBILINOGEN,URINE 0.2 mg/dL (0.2-1.0)
[2020-07-22 19:20] LABS: BACTERIA,URINE None Seen /HPF (None Seen); RBC,URINE None Seen /HPF (0-1); SQUAMOUS EPITHELIAL CELL,UR None Seen /HPF (0-2); WBC,URINE 0-1 /HPF (0-1)
== END 2020-07-22 19:33 | disposition home or self-care (01) ==
LOC: EDH 16:11
DX: J44.9 Chronic obstructive pulmonary disease, unspecified (principal); F41.9 Anxiety disorder, unspecified; Z20.822 Contact with and (suspected) exposure to COVID-19; G43.909 Migraine, unspecified, not intractable, without status migrainosus; E86.0 Dehydration; M32.9 Systemic lupus erythematosus, unspecified; Z88.6 Allergy status to analgesic agent
CPT/HCPCS: 36415; 71045; 80053; 81001; 83605; 84484; 85025; 87040 ×2; 87426; 87804 ×2; 93005; 94640; 96361 ×2; 96374; 96375; 99285; J1100; J2060; J7030; U0003

== ENCOUNTER 2020-08-14 11:30 | Emergency (ER) | payer MEDICARE ==
[~2020-08-14] VITALS: Ht 165.1 cm; Wt 83.9 kg
[2020-08-14 13:47] VITALS: BP 105/69
== END 2020-08-14 14:32 | disposition left against medical advice (07) ==
LOC: EDH 11:30
DX: M79.604 Pain in right leg (principal); Z53.21 Procedure and treatment not carried out due to patient leaving prior to being seen by health care provider

== ENCOUNTER 2020-09-16 01:46 | Emergency (ER) | payer MEDICARE ==
[~2020-09-16] VITALS: Ht 154.9 cm; Wt 83.9 kg
[2020-09-16 02:19] VITALS: BP 91/63
[2020-09-16 03:32] LABS: BASOPHILS % (AUTO) 0.2 % (0.0-5.0); EOSINOPHILS % (AUTO) 0.2 % (0.0-8.0); HEMATOCRIT 37.8 % (36-48); LYMPHOCYTES % (AUTO) 20.1 % (21.0-51.0); MEAN CORPUSCULAR HEMOGLOBIN 31.9 pg (27.0-33.0); MEAN CORPUSCULAR HGB CONC 34.1 g/dL (32.0-36.0); MEAN CORPUSCULAR VOLUME 93.3 fL (79-99); MONOCYTES % (AUTO) 10.6 % (3.0-13.0); NEUTROPHILS % (AUTO) 68.5 % (40.0-77.0); PLATELET COUNT (AUTO) 241 K/uL (130-400); RED BLOOD CELL COUNT(AUTO) 4.05 MIL/uL (4.00-5.50); RED CELL DISTRIBUTION WIDTH 12.8 % (11.0-15.5); WHITE BLOOD COUNT (AUTO) 12.7 K/uL (4.8-10.8)
[2020-09-16 03:39] LABS: ALANINE AMINOTRANSFERASE 58 U/L (12-78); ALBUMIN 3.7 g/dL (3.5-5.0); ASPARTATE AMINOTRANSFERASE 46 U/L (10-37); BILIRUBIN,TOTAL 0.3 mg/dL (0.2-1.0); CARBON DIOXIDE 29 mmol/L (21-32); CHLORIDE 102 mmol/L (101-111); CREATINE KINASE, TOTAL 48 U/L (21-232); CREATININE 1.3 mg/dL (0.5-1.5); GLOMERULAR FILTR. RATE CALC 45 mL/min (>60); GLUCOSE,RANDOM 103 mg/dL (70-105); SODIUM SERUM 142 mmol/L (136-145); TOTAL PROTEIN, SERUM 6.9 g/dL (6.0-8.3); UREA NITROGEN, BLOOD 23 mg/dL (7-18)
[2020-09-16 03:41] LABS: CRP QUANTITATIVE < 2.00 mg/L (0.00-9.0); POTASSIUM 2.5 mmol/L (3.5-5.1)
[2020-09-16] MEDS ORDERED: AZITHROMYCIN 500MG+NS 250ML 250 ML IV ONE (03:59)
[2020-09-16] MEDS ORDERED: 0.9% NACL 250ML IVPB ONE (04:00)
[2020-09-16] MEDS ORDERED: KCL 20 MEQ ERTAB PO ONE (04:00)
[2020-09-16] MEDS ORDERED: CEFTRIAXONE 1G VIAL IVP ONE (04:00)
[2020-09-16] MEDS ORDERED: AZITHROMYCIN 500MG VIAL IVPB ONE (04:00)
[2020-09-16 04:25] VITALS: BP 101/70
[2020-09-16] MEDS ORDERED: IPRA4AER IH (05:10)
[2020-09-16] MEDS ORDERED: AZIT500T PO (05:10)
[2020-09-16] MEDS ORDERED: DOXY-252 PO (05:10)
== END 2020-09-16 05:37 | disposition home or self-care (01) ==
LOC: EDH 02:21
DX: J20.9 Acute bronchitis, unspecified (principal); J44.0 Chronic obstructive pulmonary disease with (acute) lower respiratory infection; Z20.822 Contact with and (suspected) exposure to COVID-19; F41.9 Anxiety disorder, unspecified; M32.9 Systemic lupus erythematosus, unspecified; Z88.5 Allergy status to narcotic agent; Z79.899 Other long term (current) drug therapy
CPT/HCPCS: 36415; 71045; 80053; 82550; 83735; 83880; 84484; 85025; 86140; 87635; 93005; 96365; 96375; 99285; C9803; J0456; J0696

== ENCOUNTER 2020-10-16 13:05 | Emergency (ER) | payer MEDICARE ==
[~2020-10-16] VITALS: Ht 154.9 cm; Wt 88.5 kg
[~2020-10-16 13:05] MED LIST changes: +AZIT500T PO; +DOXY-252 PO; +IPRA4AER IH
[2020-10-16 13:11] VITALS: BP 109/74
[2020-10-16 14:21] LABS: BASOPHILS % (AUTO) 0.5 % (0.0-5.0); EOSINOPHILS % (AUTO) 0.6 % (0.0-8.0); HEMATOCRIT 37.5 % (36-48); LYMPHOCYTES % (AUTO) 18.1 % (21.0-51.0); MEAN CORPUSCULAR HEMOGLOBIN 31.8 pg (27.0-33.0); MEAN CORPUSCULAR HGB CONC 35.5 g/dL (32.0-36.0); MEAN CORPUSCULAR VOLUME 89.7 fL (79-99); MONOCYTES % (AUTO) 13.8 % (3.0-13.0); NEUTROPHILS % (AUTO) 66.7 % (40.0-77.0); PLATELET COUNT (AUTO) 269 K/uL (130-400); RED BLOOD CELL COUNT(AUTO) 4.18 MIL/uL (4.00-5.50); RED CELL DISTRIBUTION WIDTH 13.4 % (11.0-15.5); WHITE BLOOD COUNT (AUTO) 7.7 K/uL (4.8-10.8)
[2020-10-16 14:24] LABS: APPEARANCE,URINE Clear (CLEAR); BILIRUBIN,URINE Negative (NEGATIVE); COLOR,URINE Yellow (YELLOW); GLUCOSE, URINE (UA) Negative (NEGATIVE); KETONES,URINE Negative (NEGATIVE); LEUKOCYTE ESTERASE ,URINE Negative (NEGATIVE); NITRATE,URINE Negative (NEGATIVE); OCCULT BLOOD,URINE Negative (NEGATIVE); PH,URINE >=9.0 (5.0-8.0); PROTEIN,URINE Negative (NEGATIVE); UROBILINOGEN,URINE 0.2 mg/dL (0.2-1.0)
[2020-10-16] MEDS ORDERED: PROMETHAZINE HCL 25 MG SUPPOSITORY RC SCH (14:30)
[2020-10-16] MEDS ORDERED: 0.9%NACL 1000ML 1,000 ML IV SCH (14:30)
[2020-10-16] MEDS ORDERED: MORPHINE 2 MG SYG IVP ONE (14:30)
[2020-10-16 14:34] LABS: CREATININE 1.4 mg/dL (0.5-1.5); POTASSIUM 3.2 mmol/L (3.5-5.1)
[2020-10-16 14:36] LABS: RBC,URINE 0-1 /HPF (0-1); WBC,URINE 0-1 /HPF (0-1)
[2020-10-16 14:37] LABS: BACTERIA,URINE Few /HPF (None Seen); SQUAMOUS EPITHELIAL CELL,UR Few /HPF (0-2)
[2020-10-16 14:41] LABS: ALBUMIN 3.7 g/dL (3.5-5.0); BILIRUBIN,TOTAL 0.5 mg/dL (0.2-1.0); TOTAL PROTEIN, SERUM 7.6 g/dL (6.0-8.3)
[2020-10-16 15:39] VITALS: BP 105/64
[2020-10-16] MEDS ORDERED: POTASSIUM BICARB/CIT AC 25 MEQ TABLET.EFF PO ONE (16:00)
[2020-10-16 17:32] VITALS: BP 107/65
[2020-10-16] MEDS ORDERED: DICY20TA2 PO (18:04)
== END 2020-10-16 18:21 | disposition home or self-care (01) ==
LOC: EDH 13:05
DX: E87.6 Hypokalemia (principal); R10.32 Left lower quadrant pain; R94.5 Abnormal results of liver function studies; F45.9 Somatoform disorder, unspecified; J44.9 Chronic obstructive pulmonary disease, unspecified; F41.9 Anxiety disorder, unspecified; F32.9 Major depressive disorder, single episode, unspecified; E86.0 Dehydration; M32.9 Systemic lupus erythematosus, unspecified; Z79.899 Other long term (current) drug therapy; Z88.6 Allergy status to analgesic agent
CPT/HCPCS: 36415; 71045; 74176; 80053; 81001; 81025; 82150; 83690; 84484; 85025; 93005; 96361 ×2; 96374; 99285; J7030

== ENCOUNTER 2021-03-05 19:39 | Emergency (ER) | payer MEDICARE ==
[~2021-03-05] VITALS: Ht 154.9 cm; Wt 84.4 kg
[~2021-03-05 19:39] MED LIST changes: +DICY20TA2 PO; +ONDA-105 PO; -ONDA8TAB65 PO
[2021-03-05 21:49] VITALS: BP 112/86
[2021-03-05] MEDS ORDERED: KETOROLAC 60 MG VIAL (30MG/ML) IM ONE (22:30)
[2021-03-05] MEDS ORDERED: KETOROLAC 60 MG VIAL (30MG/ML) ONE (22:32)
[2021-03-06] MEDS ORDERED: IBUP-2077 PO (02:44)
== END 2021-03-06 03:05 | disposition home or self-care (01) ==
LOC: EDH 19:39
DX: M71.21 Synovial cyst of popliteal space [Baker], right knee (principal); F32.A Depression, unspecified; F41.9 Anxiety disorder, unspecified; M32.9 Systemic lupus erythematosus, unspecified; Z79.1 Long term (current) use of non-steroidal anti-inflammatories (NSAID); Z79.899 Other long term (current) drug therapy; Z88.5 Allergy status to narcotic agent
CPT/HCPCS: 73562; 93971; 96372; 99284; J1885

== ENCOUNTER 2022-11-18 05:36 | Inpatient (IN) | payer MEDICARE ==
[2022-11-18] VITALS (11 sets, daily range): BP systolic 93–119; BP diastolic 59–69; PULSE 65–98; RESP 16–20; O2SAT 95–99
[~2022-11-18] VITALS: Ht 154.9 cm; Wt 93.7 kg
[~2022-11-18 05:36] MED LIST changes: +IBUP-2077 PO
[2022-11-18 06:55] LABS: APPEARANCE,URINE CLEAR (CLEAR); BILIRUBIN,URINE NEGATIVE (NEGATIVE); COLOR,URINE LIGHT-YELLOW (YELLOW); GLUCOSE, URINE (UA) NEGATIVE (NEGATIVE); KETONES,URINE NEGATIVE (NEGATIVE); LEUKOCYTE ESTERASE ,URINE NEGATIVE Leu/uL (NEGATIVE); NITRATE,URINE NEGATIVE (NEGATIVE); OCCULT BLOOD,URINE NEGATIVE (NEGATIVE); PH,URINE 6.5 (5.0-8.0); PROTEIN,URINE NEGATIVE (NEGATIVE); UROBILINOGEN,URINE 0.2 mg/dL (0.2-1.0)
[2022-11-18 06:58] LABS: BASOPHILS # (AUTO) 0.03 K/uL (0.00-0.20); BASOPHILS % (AUTO) 0.7 % (0.0-5.0); EOSINOPHILS # (AUTO) 0.13 K/uL (0.00-0.70); HEMATOCRIT 32.4 % (36-48); IMMATURE GRANULOCYTE ABSOLUTE 0.01 K/uL (0-1); LYMPHOCYTES # (AUTO) 0.9 K/uL (1.0-4.8); LYMPHOCYTES % (AUTO) 20.5 % (21.0-51.0); MEAN CORPUSCULAR HGB CONC 34.6 g/dL (32.0-36.0); MEAN CORPUSCULAR VOLUME 106.9 fL (79-99); MONOCYTES # (AUTO) 0.6 K/uL (0.1-1.0); MONOCYTES % (AUTO) 12.9 % (3.0-13.0); NEUTROPHILS # (AUTO) 2.7 K/uL (1.8-7.7); NEUTROPHILS % (AUTO) 62.7 % (40.0-77.0); PLATELET COUNT (AUTO) 195 K/uL (130-400); RED BLOOD CELL COUNT(AUTO) 3.03 MIL/uL (4.00-5.50); RED CELL DISTRIBUTION WIDTH 14.7 % (11.0-15.5); WHITE BLOOD COUNT (AUTO) 4.4 K/uL (4.8-10.8)
[2022-11-18 07:03] LABS: ADD UA MICROSCOPIC NO
[2022-11-18 07:22] LABS: ALBUMIN 2.9 g/dL (3.5-5.0); BILIRUBIN,TOTAL 0.4 mg/dL (0.2-1.0); CREATININE 1.3 mg/dL (0.5-1.5); TOTAL PROTEIN, SERUM 6.7 g/dL (6.0-8.3)
[2022-11-18 07:46] LABS: SARS-CoV-2, RNA, NAAT POSITIVE SARS CoV-2 (NEGATIVE)
[2022-11-18] MEDS ORDERED: CEFTRIAXONE 2GM VIAL IVPB ONE (08:00)
[2022-11-18] MEDS ORDERED: 0.9%NACL 1000ML 1,000 ML IV ONE (08:00)
[2022-11-18] MEDS ORDERED: ALBUTEROL 0.083% 2.5 MG/3 ML INH IH ONE (08:00)
[2022-11-18 08:01] LABS: INFLUENZA TYPE A Negative For Type A (NEGATIVE)
[2022-11-18] MEDS ORDERED: BENZONATATE 100 MG CAPSULE PO ONE (08:30)
[2022-11-18] MEDS ORDERED: ACETAMINOPHEN 500 MG TABLET PO ONE (08:30)
[2022-11-18 08:37] LABS: INFLUENZA TYPE B Positive For Type B (NEGATIVE)
[2022-11-18] MEDS ORDERED: BENZOCAINE/MENTH/CETYLPYRD CL 1 EACH LOZENGE MM PRN (09:00)
[2022-11-18] MEDS ORDERED: ONDANSETRON 4MG INJ IV PRN (10:00)
[2022-11-18] MEDS ORDERED: ACETAMINOPHEN 325 MG TAB PO PRN (10:00)
[2022-11-18] MEDS ORDERED: LACTULOSE 20 GM/30 ML UDCUP PO PRN (10:00)
[2022-11-18] MEDS: AZITHROMYCIN 500MG+NS 250ML 250 ML IV SCH (10:07)
[2022-11-18 10:46] LABS: HEMOGLOBIN A1C 5.6 % (4.0-6.0)
[2022-11-18] MEDS: IPRATROPIUM/ALBUTEROL SULFATE 3 ML SOLUTION IH SCH ×3 (11:08→23:01)
[2022-11-18] MEDS ORDERED: SODIUM CHLORIDE 3% FOR INHALATION 4 ML/AMP VIAL.NEB IH ONE (11:12)
[2022-11-18] MEDS: FAMOTIDINE 20MG TAB PO SCH (21:51)
[2022-11-18] MEDS: ACETAMINOPHEN 325 MG TAB PO PRN (21:52)
[2022-11-18] MEDS: OSELTAMIVIR PHOSPHATE 75 MG CAP PO SCH (21:52)
[2022-11-18] MEDS ORDERED: PRED5TAB44 PO (22:11)
[2022-11-18] MEDS ORDERED: KCL10IV IV (22:21)
[2022-11-18] MEDS ORDERED: LEFL20TA18 PO (22:21)
[2022-11-18] MEDS ORDERED: TORS20TA4 PO (22:21)
[2022-11-18] MEDS ORDERED: HYDR-4030 PO (22:21)
[2022-11-18] MEDS ORDERED: FLUO20CA36 PO (22:21)
[2022-11-18] MEDS ORDERED: RIME75TA PO (22:38)
[2022-11-18] MEDS ORDERED: LEVA1.255 IH (22:38)
[2022-11-18] MEDS ORDERED: AZAT50TA17 PO (22:38)
[2022-11-18] MEDS: GUAIFENESIN-DM 200/20 MG 10 ML PO PRN (23:15)
[2022-11-19] VITALS (12 sets, daily range): BP systolic 90–134; BP diastolic 70–88; PULSE 72–88; RESP 16–19; O2SAT 95–97
[2022-11-19 05:13] LABS: HEMATOCRIT 31.4 % (36-48); MEAN CORPUSCULAR HEMOGLOBIN 36.9 pg (27.0-33.0); MEAN CORPUSCULAR HGB CONC 34.4 g/dL (32.0-36.0); MEAN CORPUSCULAR VOLUME 107.2 fL (79-99); RED BLOOD CELL COUNT(AUTO) 2.93 MIL/uL (4.00-5.50); RED CELL DISTRIBUTION WIDTH 14.6 % (11.0-15.5); WHITE BLOOD COUNT (AUTO) 3.4 K/uL (4.8-10.8)
[2022-11-19 05:36] LABS: PHOSPHORUS 3.9 mg/dL (2.5-4.9); THYROID STIMULATING HORMONE 2.22 uIU/mL (0.36-3.74)
[2022-11-19] MEDS: GUAIFENESIN-DM 200/20 MG 10 ML PO PRN (06:33)
[2022-11-19] MEDS: IPRATROPIUM/ALBUTEROL SULFATE 3 ML SOLUTION IH SCH ×4 (06:49→23:38)
[2022-11-19 07:15] LABS: BILIRUBIN,TOTAL 0.4 mg/dL (0.2-1.0); CREATININE 1.4 mg/dL (0.5-1.5); POTASSIUM 3.6 mmol/L (3.5-5.1); TOTAL PROTEIN, SERUM 6.4 g/dL (6.0-8.3)
[2022-11-19] MEDS: Vitamin B Complex/Vit C/Folic Acid PO SCH (08:41)
[2022-11-19] MEDS: AZITHROMYCIN 500MG+NS 250ML 250 ML IV SCH (08:42)
[2022-11-19] MEDS: ENOXAPARIN SODIUM 30 MG/0.3 ML SQ SCH (08:42)
[2022-11-19] MEDS: BENZONATATE 100 MG CAPSULE PO SCH ×2 (11:54→19:56)
[2022-11-19 14:07] LABS: BASOPHILS # (AUTO) 0.03 K/uL (0.00-0.20); BASOPHILS % (AUTO) 0.7 % (0.0-5.0); EOSINOPHILS # (AUTO) 0.11 K/uL (0.00-0.70); EOSINOPHILS % (AUTO) 2.6 % (0.0-8.0); HEMATOCRIT 33.1 % (36-48); IMMATURE GRANULOCYTE ABSOLUTE 0.01 K/uL (0-1); LYMPHOCYTES # (AUTO) 0.8 K/uL (1.0-4.8); MEAN CORPUSCULAR HEMOGLOBIN 37.1 pg (27.0-33.0); MEAN CORPUSCULAR HGB CONC 34.7 g/dL (32.0-36.0); MEAN CORPUSCULAR VOLUME 106.8 fL (79-99); MONOCYTES # (AUTO) 0.6 K/uL (0.1-1.0); MONOCYTES % (AUTO) 13.7 % (3.0-13.0); NEUTROPHILS # (AUTO) 2.8 K/uL (1.8-7.7); NEUTROPHILS % (AUTO) 63.8 % (40.0-77.0); PLATELET COUNT (AUTO) 228 K/uL (130-400); RED CELL DISTRIBUTION WIDTH 14.8 % (11.0-15.5); WHITE BLOOD COUNT (AUTO) 4.3 K/uL (4.8-10.8)
[2022-11-19 14:26] LABS: ALBUMIN 3.4 g/dL (3.5-5.0); BILIRUBIN,TOTAL 0.5 mg/dL (0.2-1.0); CREATININE 1.3 mg/dL (0.5-1.5); PHOSPHORUS 2.5 mg/dL (2.5-4.9); POTASSIUM 3.7 mmol/L (3.5-5.1); TOTAL PROTEIN, SERUM 6.8 g/dL (6.0-8.3)
[2022-11-19] MEDS: ACETAMINOPHEN 325 MG TAB PO PRN (15:13)
[2022-11-19] MEDS: OSELTAMIVIR PHOSPHATE 75 MG CAP PO SCH (19:56)
[2022-11-19] MEDS: FAMOTIDINE 20MG TAB PO SCH (19:56)
[2022-11-20] VITALS (10 sets, daily range): BP systolic 92–131; BP diastolic 61–93; PULSE 68–90; RESP 16–20; O2SAT 94–97
[2022-11-20] MEDS: BENZONATATE 100 MG CAPSULE PO SCH ×2 (03:31→12:45)
[2022-11-20 06:24] LABS: BASOPHILS # (AUTO) 0.03 K/uL (0.00-0.20); BASOPHILS % (AUTO) 0.9 % (0.0-5.0); EOSINOPHILS # (AUTO) 0.14 K/uL (0.00-0.70); HEMATOCRIT 33.4 % (36-48); IMMATURE GRANULOCYTE ABSOLUTE 0.01 K/uL (0-1); LYMPHOCYTES # (AUTO) 0.7 K/uL (1.0-4.8); LYMPHOCYTES % (AUTO) 19.3 % (21.0-51.0); MEAN CORPUSCULAR HEMOGLOBIN 36.7 pg (27.0-33.0); MEAN CORPUSCULAR HGB CONC 33.8 g/dL (32.0-36.0); MEAN CORPUSCULAR VOLUME 108.4 fL (79-99); MONOCYTES # (AUTO) 0.7 K/uL (0.1-1.0); NEUTROPHILS % (AUTO) 56.5 % (40.0-77.0); PLATELET COUNT (AUTO) 210 K/uL (130-400); RED BLOOD CELL COUNT(AUTO) 3.08 MIL/uL (4.00-5.50); RED CELL DISTRIBUTION WIDTH 14.6 % (11.0-15.5); WHITE BLOOD COUNT (AUTO) 3.5 K/uL (4.8-10.8)
[2022-11-20] MEDS: IPRATROPIUM/ALBUTEROL SULFATE 3 ML SOLUTION IH SCH ×3 (06:27→18:58)
[2022-11-20 06:38] LABS: CREATININE 1.4 mg/dL (0.5-1.5); POTASSIUM 4.1 mmol/L (3.5-5.1)
[2022-11-20] MEDS: Vitamin B Complex/Vit C/Folic Acid PO SCH (09:16)
[2022-11-20] MEDS: ENOXAPARIN SODIUM 30 MG/0.3 ML SQ SCH (09:17)
[2022-11-20] MEDS: AZITHROMYCIN 500MG+NS 250ML 250 ML IV SCH (09:29)
[2022-11-20] MEDS ORDERED: AZIT250T9 PO (18:27)
[2022-11-20] MEDS ORDERED: BENZ-226 PO (18:27)
[2022-11-20] MEDS ORDERED: OSEL75 PO (18:27)
== END 2022-11-20 20:07 | disposition home or self-care (01) | DRG 179 ==
LOC: EDH 05:36 → 3CH 14:16
PROVIDERS: ADMIT Internal Medicine; ATTEND Internal Medicine
PROC: 5A09357 Assistance with Respiratory Ventilation, Less than 24 Consecutive Hours, Continuous Positive Airway Pressure (ICD-10-PCS; principal; 2022-11-19)
DX: U07.1 COVID-19 (principal); N18.9 Chronic kidney disease, unspecified; J10.1 Influenza due to other identified influenza virus with other respiratory manifestations; R53.1 Weakness; Z86.16 Personal history of COVID-19
CPT/HCPCS: 36415; 71045; 73562; 80048; 80053; 81003; 82550; 82607; 82746; 83036; 83735; 84100; 84145; 84443; 84484; 84550; 85025; 85027; 85651; 86140; 87040; 87071; 87088; 87205; 87635; 87804; 93005; 94640; 94660; 94664; 94667; 94668; C9803; G0378; J0456; J0696; J1650; J7030

== ENCOUNTER 2023-06-19 11:07 | Emergency (ER) | payer MEDICARE ==
[~2023-06-19] VITALS: Ht 157.5 cm; Wt 95.3 kg
[~2023-06-19 11:07] MED LIST changes: -ALPR2TAB7 PO; -AMLO2.5T4 PO; +AZAT50TA17 PO; +AZIT250T9 PO; -AZIT500T PO; +BENZ-226 PO; -BREX1TAB PO; -CEVI30CA7 PO; -DICY20TA2 PO; -DOXY-252 PO; -DULO30CA2 PO; -EREN70AU2 SQ; +FLUO20CA36 PO; -FOLI1TAB85 PO; +HYDR-4030 PO; -HYDR200T82 PO; -IBUP-2077 PO; -IPRA4AER IH; +KCL10IV IV; +LEFL20TA22 PO; +LEVA1.255 IH; -LUBI24CA2 PO; -MECL-160 PO; +OSEL75 PO; +PRED5TAB44 PO; +RIME75TA PO; -SUMA100T16 PO; -TOPI200C6 PO; +TORS20TA4 PO; -TRAM50TA4 PO; -VITAMIN D2 PO; -VORT5TAB PO
[2023-06-19 13:21] LABS: BASOPHILS # (AUTO) 0.03 K/uL (0.00-0.20); BASOPHILS % (AUTO) 0.4 % (0.0-5.0); EOSINOPHILS # (AUTO) 0.09 K/uL (0.00-0.70); EOSINOPHILS % (AUTO) 1.2 % (0.0-8.0); HEMATOCRIT 35.9 % (36-48); IMMATURE GRANULOCYTE ABSOLUTE 0.01 K/uL (0-1); LYMPHOCYTES # (AUTO) 1.3 K/uL (1.0-4.8); LYMPHOCYTES % (AUTO) 17.7 % (21.0-51.0); MEAN CORPUSCULAR HGB CONC 35.7 g/dL (32.0-36.0); MEAN CORPUSCULAR VOLUME 98.1 fL (79-99); MONOCYTES # (AUTO) 0.7 K/uL (0.1-1.0); MONOCYTES % (AUTO) 9.9 % (3.0-13.0); NEUTROPHILS # (AUTO) 5.1 K/uL (1.8-7.7); NEUTROPHILS % (AUTO) 70.7 % (40.0-77.0); PLATELET COUNT (AUTO) 281 K/uL (130-400); RED BLOOD CELL COUNT(AUTO) 3.66 MIL/uL (4.00-5.50); WHITE BLOOD COUNT (AUTO) 7.3 K/uL (4.8-10.8)
[2023-06-19 13:28] LABS: ALBUMIN 3.7 g/dL (3.5-5.0); CREATININE 1.5 mg/dL (0.5-1.0); POTASSIUM 3.1 mmol/L (3.5-5.1)
[2023-06-19 13:30] LABS: INR <= 0.93 (0.85-1.15); PROTHROMBIN TIME 10.3 SEC (9.6-11.6)
[2023-06-19 13:32] LABS: PARTIAL THROMBOPLASTIN TIME 52.1 SEC (26.3-35.5)
[2023-06-19 13:34] LABS: BILIRUBIN,TOTAL 0.4 mg/dL (0.2-1.0); MAGNESIUM 2.2 mg/dL (1.80-2.40); TOTAL PROTEIN, SERUM 7.5 g/dL (6.0-8.3)
[2023-06-19 13:56] LABS: B-TYPE NATRIURETIC PEPTIDE 21 pg/mL (0-100)
[2023-06-19] MEDS: POTASSIUM BICARB/CIT AC 25 MEQ TABLET.EFF PO ONE (14:20)
[2023-06-19] MEDS ORDERED: POTA-192 PO (14:26)
[2023-06-19 14:34] VITALS: BP 127/88; PULSE 62; RESP 18; O2SAT 98
[2023-06-19] MEDS ORDERED: HEPARIN PF LOCK 500 UNIT/5ML IV SCH (15:00)
== END 2023-06-19 15:21 | disposition home or self-care (01) ==
LOC: EDH 11:07
DX: R00.2 Palpitations (principal); I12.9 Hypertensive chronic kidney disease with stage 1 through stage 4 chronic kidney disease, or unspecified chronic kidney disease; N18.9 Chronic kidney disease, unspecified; E86.0 Dehydration; E87.6 Hypokalemia; Z99.81 Dependence on supplemental oxygen; I10 Essential (primary) hypertension; M79.7 Fibromyalgia; Z79.899 Other long term (current) drug therapy; Z98.890 Other specified postprocedural states; Z88.5 Allergy status to narcotic agent; Z88.8 Allergy status to other drugs, medicaments and biological substances
CPT/HCPCS: 36415; 71045; 80053; 83735; 83880; 84484; 85025; 85610; 85730; 93005

== ENCOUNTER 2024-03-15 00:31 | Emergency (ER) | payer MEDICARE ==
[~2024-03-15] VITALS: Ht 154.9 cm; Wt 97.5 kg
[~2024-03-15 00:31] MED LIST changes: +FLUO-418 PO; -FLUO20CA36 PO; +POTA-192 PO
--- NOTE | 2024-03-15 00:49 | NUR ---
PATIENT REPORTS NOT BEING ABLE TO SLEEP
[2024-03-15 01:10] LABS: APPEARANCE,URINE CLEAR (CLEAR); BILIRUBIN,URINE NEGATIVE (NEGATIVE); COLOR,URINE LIGHT-YELLOW (YELLOW); GLUCOSE, URINE (UA) NEGATIVE (NEGATIVE); KETONES,URINE 5 mg/dL (NEGATIVE); LEUKOCYTE ESTERASE ,URINE 75 Leu/uL (NEGATIVE); NITRATE,URINE NEGATIVE (NEGATIVE); OCCULT BLOOD,URINE NEGATIVE (NEGATIVE); PH,URINE 5.5 (5.0-8.0); PROTEIN,URINE 20 mg/dL (NEGATIVE); UROBILINOGEN,URINE 0.2 mg/dL (0.2-1.0)
[2024-03-15 01:21] LABS: ADD UA MICROSCOPIC YES
--- NOTE | 2024-03-15 01:22 | ERN ---
ED Note History of Present Illness Stated Complaint: NAUSEA AND VOMMITING Chief Complaint: Nausea,Vomiting,Diarrhea Time Seen by MD: 00:37 Time Seen by Midlevel: 00:37 Dictation: The patient is a 58-year-old female with a history of CKD, lupus, hypertension who presents to the emergency department with complaints of nausea nonbloody vomiting onset yesterday associated with suprapubic abdominal pain. Patient also reports nonbloody diarrhea. Per patient has not slept in 4-5 days. Patient reports history of insomnia was states medications are not working. Patient has been also reported patient has been very forgetful onset yesterday. Denies any falls or head trauma. Patient poor historian Allergies: Coded Allergies: codeine (Verified Allergy, Unknown, 06/30/19) latex (Unverified Allergy, Unknown, 06/19/23) Home Meds Active Scripts Potassium Chloride (K-Dur/Klor-Con) 20 Meq Ertab, 20 MEQ PO DAILY for 5 Days, #5 TAB.EC Prov:JULIO MARTELL [employer] 06/19/23 Azithromycin (Azithromycin) 250 Mg Tablet, 250 MG PO DAILY for 3 Days, #3 TAB Prov:DILMA CHRISTIANSEN Jr., MD 11/20/22 Oseltamivir Phosphate (Tamiflu) 75 Mg Cap, 75 MG PO HS for 5 Days, #5 CAP Prov:DILMA CHRISTIANSEN Jr., MD 11/20/22 Benzonatate (Benzonatate) 100 Mg Capsule, 100 MG PO Q8H for 30 Days, #90 CAP 1 Refill Prov:DILMA CHRISTIANSEN Jr., MD 11/20/22 Ondansetron HCl (Ondansetron HCl) 8 Mg Tablet, 4 MG PO DAILY PRN for NAUSEA/VOMITING for 10 Days, TAB Prov:JANAK ELLISON 06/30/19 Reported Medications Levalbuterol HCl (Levalbuterol Concentrate) 1.25 Mg/0.5 Ml Vial.neb, 1.25 MG IH Q4PRN, INH 11/18/22 Rimegepant Sulfate (Nurtec Odt) 75 Mg Tab.rapdis, 75 MG PO DAILY for MIGRAINE, TAB 11/18/22 Azathioprine (Imuran) 50 Mg Tablet, 50 MG PO TID, TAB 11/18/22 Potassium Chloride (Potassium Chloride 10 Meq) 10 Meq/50 Ml Ivsoln, 10 MEQ IV BID, ML 11/18/22 Fluoxetine HCl (Fluoxetine HCl) 20 Mg Capsule, 60 MG PO DAILY, CAP 11/18/22 Leflunomide (Leflunomide) 20 Mg Tablet, 20 MG PO DAILY, TAB 11/18/22 Hydroxyzine Pamoate (Hydroxyzine Pamoate) 25 Mg Capsule, 25 MG PO HS, CAP 11/18/22 Torsemide (Torsemide) 20 Mg Tablet, 20 MG PO DAILY, TAB 11/18/22 Prednisone (Prednisone) 5 Mg Tab.ds.pk, 10 MG PO DAILY 11/18/22 Atorvastatin Calcium (Atorvastatin Calcium) 20 Mg Tablet, 20 MG PO HS, TAB 06/30/19 Hydrochlorothiazide (Hydrochlorothiazide) 50 Mg Tablet, 25 MG PO DAILY, TAB 06/30/19 Tizanidine HCl (Tizanidine HCl) 4 Mg Capsule, 4 MG PO DAILY PRN for MUSCLE SPASMS, CAP 06/30/19 Trazodone HCl (Trazodone HCl) 100 Mg Tablet, 100 MG PO HS, TAB 06/30/19 Past Medical History Past Medical History: Hypertension, Renal Disese Additional Past Medical Hx: PULMONARY DISEASE, BRAIN TUMOR, CKD, LUPUS Surgical History: None Surgical History Other: PORT A CATH Family History: Negative Social History: Negative History: Not Applicable RN Note Reviewed/Agreed w/PFSH: Yes Review of System Dictation Constitutional: Negative for fever,chills, and weight loss Eyes: Negative for injury, pain,redness, and discharge ENT: Negative for injury,pain or swelling Cardiovascular: Negative for chest pain, palpitations, and edema Respiratory: Negative for shortness of breath, cough, and wheezing, Abdomen/GI: Negative for constipation positive for abdominal pain, nausea, vomiting, diarrhea, an Back: Negative for injury and pain : Negative for injury, bleeding and discharge MS/Extremity: Negative for injury and deformity Skin: Negative for rash, and discoloration Neuro: Negative for numbness, tingling, and seizure positive for headache, weakness, dizziness Psych: Negative for suicide ideation, homicidal ideation, and hallucinations Initial Vital Sign VS Vital Signs Date Time Temp Pulse Resp B/P (MAP) Pulse Ox O2 Delivery O2 Flow Rate FiO2 03/15/24 00:34 98.2 92 18 129/88 99 03/15/24 00:37 Room Air* 0 21 Physical Exam Dictation Vital Signs reviewed General Appearance: Alert, oriented x 2, no acute distress, well developed, nourished. Head and Face: non-traumatic. Eyes: PERRL, pink conjunctivas, eyelid no trauma, anterior chamber with arcus senilis. Ears: Pinnas intact and no signs of trauma or erythema ear canals clear and no discharge TM no erythema Nose: No discharge, no bleeding. Oropharynx: Mouth normal, tongue pink. pharynx clear,no erythema, tonsils no exudates, no abscesses noted, mucous membrane moist Neck: Supple, non-tender, no thyromegaly, no masses, no JVD, no bruits Breast:Deferred Chest:No tenderness, no crepitus, no paradoxical movement, no retractions Lungs:Clear, well-ventilated, symmetric, no rales, no wheezing, no rhonchi, no stridor, good breath sounds bilaterally Heart: Regular rate, regular rhythm, no murmur, no gallops Vascular: no peripheral edema, Abdomen: Soft, positive bowel sounds, nondistended, no guarding, Generalized tenderness, no rebound, no masses no hepatomegaly, no splenomegaly, no Spain's sign, no hernias. Rectal: Deferred Genital: Deferred Neurological: Normal speech, motor function intact, sensory function intact , upper extremities equal and strength, lower extremities equal in strength, no facial droop Musculoskeletal: Neck nontender, full range of motion, back nontender, full range of motion, Extremities: nontender, full range of motion Skin: Color pink, dry, no turgor, no rash, no lacerations, no abrasions, no contusions. Lymphatic: Deferred Results (Laboratory/Radiology) Laboratory/Radiology Laboratory Tests Test 03/15/24 01:00 03/15/24 01:55 Urine Color LIGHT-YELLOW (YELLOW) Urine Appearance CLEAR (CLEAR) Urine pH 5.5 (5.0-8.0) Urine Specific [place] 1.015 (1.001-1.031) Urine Protein 20 mg/dL (NEGATIVE) H Urine Glucose (UA) NEGATIVE mg/dL (NEGATIVE) Urine Ketones 5 mg/dL (NEGATIVE) H Urine Occult Blood NEGATIVE (NEGATIVE) Urine Nitrate NEGATIVE (NEGATIVE) Urine Bilirubin NEGATIVE mg/dL (NEGATIVE) Urine Urobilinogen 0.2 mg/dL (0.2-1.0) Urine Leukocyte Esterase 75 Diamond/uL (NEGATIVE) H Urine RBC 0-1 /HPF (0-1) Urine WBC 2-5 /HPF (0-1) H Urine Squamous Epithelial Cells RARE /HPF (0-2) Urine Bacteria MOD /HPF (None Seen) Urine Opiates Screen NEGATIVE (NEGATIVE) Urine Barbiturates Screen NEGATIVE (NEGATIVE) Urine Phencyclidine Screen NEGATIVE (NEGATIVE) Urine Amphetamines Screen NEGATIVE (NEGATIVE) Urine Benzodiazepines Screen POSITIVE (NEGATIVE) H Urine Cocaine Screen NEGATIVE (NEGATIVE) Urine Marijuana (THC) Screen NEGATIVE (NEGATIVE) White Blood Count 12.8 K/uL (4.8-10.8) H Red Blood Count 3.60 MIL/uL (4.00-5.50) L Hemoglobin 12.1 g/dL (12.0-16.0) Hematocrit 34.1 % (36-48) L Mean Corpuscular Volume 94.7 fL (79-99) Mean Corpuscular Hemoglobin 33.6 pg (27.0-33.0) H Mean Corpuscular Hemoglobin Concent 35.5 g/dL (32.0-36.0) Red Cell Distribution Width 13.7 % (11.0-15.5) Platelet Count 244 K/uL (130-400) Mean Platelet Volume 10.9 fL (7.5-10.5) H Immature Granulocyte % (Auto) 0.5 % (0-1) Neutrophils (%) (Auto) 85.3 % (40.0-77.0) H Lymphocytes (%) (Auto) 5.1 % (21.0-51.0) L Monocytes (%) (Auto) 8.4 % (3.0-13.0) Eosinophils (%) (Auto) 0.4 % (0.0-8.0) Basophils (%) (Auto) 0.3 % (0.0-5.0) Neutrophils # (Auto) 10.9 K/uL (1.8-7.7) H Lymphocytes # (Auto) 0.7 K/uL (1.0-4.8) L Monocytes # (Auto) 1.1 K/uL (0.1-1.0) H Eosinophils # (Auto) 0.05 K/uL (0.00-0.70) Basophils # (Auto) 0.04 K/uL (0.00-0.20) Absolute Immature Granulocyte (auto 0.06 K/uL (0-1) Nucleated Red Blood Cells 0.0 % (0.0-0.19) Sodium Level 138 mmol/L (136-145) Potassium Level 3.2 mmol/L (3.5-5.1) L Chloride Level 94 mmol/L (101-111) L Carbon Dioxide Level 30 mmol/L (21-32) Blood Urea Nitrogen 26 mg/dL (7-18) H Creatinine 1.8 mg/dL (0.5-1.0) H Glomerular Filtration Rate Calc 32 mL/min (>90) Random Glucose 85 mg/dL (70-105) Total Calcium 10.5 mg/dL (8.5-10.1) H Total Bilirubin 0.8 mg/dL (0.2-1.0) Direct Bilirubin 0.2 mg/dL (0.0-0.3) Aspartate Amino Transf (AST/SGOT) 42 U/L (10-37) H Alanine Aminotransferase (ALT/SGPT) 43 U/L (12-78) Alkaline Phosphatase 197 U/L (50-136) H Ammonia < 10 umol/L (11-32) L Total Creatine Kinase 241 U/L (21-232) H Troponin I High Sensitivity 8 ng/L (4-50) Total Protein 8.7 g/dL (6.0-8.3) H Albumin 3.9 g/dL (3.5-5.0) Lipase 48 U/L (16-77) Labs Reviewed?: Yes EKG: (+) rhythm (Sinus rhythm) EKG Comment: EKG 03/15/2024 0106 ventricular rate 84, regular rate and rhythm, normal sinus rhythm, no STEMI ED Course ED Course Orders Procedure Category Date Status Time Urinalysis Profile LAB 03/15/24 Complete 00:44 Drug Screen Urine LAB 03/15/24 Complete 00:44 Cbc With Differential LAB 03/15/24 In Process 01:01 Troponin I High LAB 03/15/24 Complete Sensitivity 01:01 12 Lead Ekg Tracing- EKG 03/15/24 Logged Technical 01:01 Ondansetron 4mg Inj PHA 03/15/24 Complete (Zofran 4mg Inj) 01:30 Pantoprazole 40mg Inj PHA 03/15/24 Complete (Protonix 40mg Inj 01:30 Creatine Kinase, Total LAB 03/15/24 Complete 01:01 Chest 1vw RAD 03/15/24 Taken 01:01 Lipase LAB 03/15/24 Complete 01:01 Basic Metabolic Panel LAB 03/15/24 Complete 01:01 Hepatic Function Panel LAB 03/15/24 Complete 01:01 Ammonia LAB 03/15/24 Complete 01:01 Ct Head/Brain W/O CT 03/15/24 Resulted Contrast 01:01 Ct Abdomen/Pelvis W/O CT 03/15/24 Resulted Contrast 01:01 0.9%Nacl 1000ml (Ns PHA 03/15/24 Complete 1000ml) 01:30 Culture Urine PARRISH 03/15/24 In Process 01:21 Current Medications Medications (Trade) Dose Ordered Sig/William Route PRN Reason Start Time Stop Time Status Last Admin Dose Admin Ondansetron HCl (zoFRAN 4MG INJ) 4 mg ONCE ONCE IVP 03/15/24 01:30 03/15/24 01:31 DC 03/15/24 02:09 Pantoprazole Sodium (PROTonix 40MG INJ) 40 mg ONCE ONCE IVP 03/15/24 01:30 03/15/24 01:31 DC 03/15/24 02:09 Sodium Chloride 1,000 ml @ 0 mls/hr ONCE ONCE IV 03/15/24 01:30 03/15/24 01:31 DC 03/15/24 02:09 Vital Signs Date Time Temp Pulse Resp B/P (MAP) Pulse Ox O2 Delivery O2 Flow Rate FiO2 03/15/24 00:37 98.4 91 18 129/88 99 Room Air* 0 21 03/15/24 00:34 98.2 92 18 129/88 99 Medical Decision Making MDM MDM: DIFFERENTIAL DIAGNOSIS: UTI , DEHYDRATION, PATIENT IS A 58-YEAR-OLD FEMALE COMING IN TO BE EVALUATED FOR MULTIPLE COM PLAINTS. PATIENT STATES THAT SHE HAS BEEN HAVING SOME NAUSEOUSNESS AND ABDOMINAL DISCOMFORT. LABORATORY WORKUP NEGATIVE FOR ACUTE FINDINGS MILDLY ELEVATED CREATININE BUT PATIENT DOES HAVE A HISTORY OF CHRONIC KIDNEY DISEASE. PATIENT DID PRESENT WITH A URINARY TRACT INFECTION ANTIBIOTICS WILL BE PROVIDED FOR THAT. PATIENT STATES WITH THE HYDRATION SHE FEELS BETTER. PATIENT WILL BE DISCHARGED IN STABLE CONDITION. DX & DISP Disposition: Discharge Departure Impression: Primary Impression: Dehydration Additional Impression: UTI (urinary tract infection) Condition: Stable Scripts Cephalexin Monohydrate (Keflex) 500 Mg Cap 1 CAP PO BID for 10 Days, #20 CAP 0 Refills Prov: KENZIE OBRIEN MD 03/15/24 Additional Instructions: FOLLOW-UP WITH PRIMARY CARE PROVIDER IN 1 TO 2 DAYS. TAKE MEDICATIONS DIRECTED HERE IN THE EMERGENCY ROOM. OKAY TO CONTINUE HOME MEDICATIONS UNLESS OTHERWISE DISCUSSED DURING YOUR VISIT IN THE EMERGENCY ROOM TODAY. RETURN TO YOUR NEAREST EMERGENCY ROOM IF SYMPTOMS WORSEN OR IF THERE IS NO IMPROVEMENT. CALL 911 IF YOU NEED IMMEDIATE ASSISTANCE. TAKE TYLENOL [id number] NEEDED AND IF NO CONTRAINDICATIONS ARE PRESENT. INCREASE ORAL HYDRATION. A WOUND CULTURE OR URINE CULTURE WAS ORDERED HERE IN THE EMERGENCY ROOM DEPARTMENT PLEASE FOLLOW-UP WITH PRIMARY CARE PROVIDER AND ADVISE THEM TO GET REPEAT PORTS FROM OUR FACILITY. IF YOU HAD ANY ZAKI WRAP/SPLINTS THAT WERE APPLIED HERE, PLEASE DO NOT REMOVE THEM UNTIL YOU SEE YOUR PRIMARY CARE OR SPECIALTY. REFERRALS: Referrals: IAIN HANNON MD (PCP) Time of Disposition: 02:34 KWESI REED Mar 15, 2024 01:22 KENZIE OBRIEN MD Mar 15, 2024 02:39
[2024-03-15 01:26] LABS: AMPHET/METH SCREEN,URINE NEGATIVE (NEGATIVE); BACTERIA,URINE MOD /HPF (None Seen); BARBITURATE SCREEN, URINE NEGATIVE (NEGATIVE); BENZODIAZEPINES SCREEN,URINE POSITIVE (NEGATIVE); CANNABINOID SCREEN,URINE NEGATIVE (NEGATIVE); COCAINE SCREEN,URINE NEGATIVE (NEGATIVE); MUCUS,URINE RARE LPF (None Seen); OPIATE SCREEN,URINE NEGATIVE (NEGATIVE); PHENCYCLIDINE SCREEN,URINE NEGATIVE (NEGATIVE); RBC,URINE 0-1 /HPF (0-1); SQUAMOUS EPITHELIAL CELL,UR RARE /HPF (0-2)
--- NOTE | 2024-03-15 01:40 | HMCIMG ---
CT HEAD/BRAIN W/O CONTRAST HISTORY: Headaches COMPARISON: None TECHNIQUE: Multiple sequential axial images of the head were obtained from the base of the skull through vertex. Patient was not given contrast through intravenous route. FINDINGS: The ventricles and extraventricular CSF spaces are dilated consistent with cerebral atrophy. Nonspecific white matter changes seen. There is no midline shift, mass effect or herniation. No acute intracranial bleed is seen. Visualized portion of the paranasal sinuses are grossly within normal limits. IMPRESSION: 1. No acute intracranial bleed is seen. 2. Atrophy with white matter changes. CT was performed with one or more following dose reduction techniques: automated exposure control, adjustment of the mA and kv according to patient's size, or use of a iterative reconstruction technique.
--- NOTE | 2024-03-15 01:46 | HMCIMG ---
CT ABDOMEN/PELVIS W/O CONTRAST HISTORY: Suprapubic pain COMPARISON: 10/16/2020 TECHNIQUE: Multiple sequential axial images of the abdomen and pelvis were obtained from the dome of the diaphragm through symphysis pubis. Patient was not given contrast through intravenous route. Oral contrast was not given. FINDINGS: There are motion artifacts degrading the image quality. No pleural effusion is seen bilaterally. There is no evidence of parenchymal disease or pulmonary nodule of the visualized lower lungs. Degenerative changes of the thoracolumbar spine are present. The heart is not enlarged. Gallbladder is distended. Fatty changes of the liver are noted. A small hiatal hernia is seen. The liver, spleen, adrenal glands and pancreas are unremarkable. There is no evidence of hydronephrosis bilaterally. No evidence of renal stone is seen. Fecal material is seen in the colon. There are normal size retroperitoneal and mesenteric lymph nodes. No ascites is seen. No CT evidence of acute appendicitis is seen. Clinical correlation is recommended. Pelvic sidewalls are symmetric bilaterally. Bladder is poorly distended. IMPRESSION: 1. No acute findings. CT was performed with one or more following dose reduction techniques: automated exposure control, adjustment of the mA and kv according to patient's size, or use of a iterative reconstruction technique.
[2024-03-15 02:07] LABS: BASOPHILS # (AUTO) 0.04 K/uL (0.00-0.20); BASOPHILS % (AUTO) 0.3 % (0.0-5.0); EOSINOPHILS # (AUTO) 0.05 K/uL (0.00-0.70); EOSINOPHILS % (AUTO) 0.4 % (0.0-8.0); HEMATOCRIT 34.1 % (36-48); IMMATURE GRANULOCYTE ABSOLUTE 0.06 K/uL (0-1); LYMPHOCYTES # (AUTO) 0.7 K/uL (1.0-4.8); LYMPHOCYTES % (AUTO) 5.1 % (21.0-51.0); MEAN CORPUSCULAR HEMOGLOBIN 33.6 pg (27.0-33.0); MEAN CORPUSCULAR HGB CONC 35.5 g/dL (32.0-36.0); MEAN CORPUSCULAR VOLUME 94.7 fL (79-99); MONOCYTES # (AUTO) 1.1 K/uL (0.1-1.0); MONOCYTES % (AUTO) 8.4 % (3.0-13.0); NEUTROPHILS # (AUTO) 10.9 K/uL (1.8-7.7); NEUTROPHILS % (AUTO) 85.3 % (40.0-77.0); PLATELET COUNT (AUTO) 244 K/uL (130-400); RED CELL DISTRIBUTION WIDTH 13.7 % (11.0-15.5); WHITE BLOOD COUNT (AUTO) 12.8 K/uL (4.8-10.8)
[2024-03-15] MEDS: PANTOPrazole 40 MG/VIAL IVP ONE (02:09)
[2024-03-15] MEDS: ondanSETRON 4MG INJ IVP ONE (02:09)
[2024-03-15] MEDS: 0.9%NACL 1000ML 1,000 ML IV ONE (02:09)
[2024-03-15 02:16] LABS: CARBON DIOXIDE 30 mmol/L (21-32); CHLORIDE 94 mmol/L (101-111); CREATININE 1.8 mg/dL (0.5-1.0); GLOMERULAR FILTR. RATE CALC 32 mL/min (>90); GLUCOSE,RANDOM 85 mg/dL (70-105); POTASSIUM 3.2 mmol/L (3.5-5.1); SODIUM SERUM 138 mmol/L (136-145); UREA NITROGEN, BLOOD 26 mg/dL (7-18)
[2024-03-15 02:20] LABS: ALANINE AMINOTRANSFERASE 43 U/L (12-78); ALBUMIN 3.9 g/dL (3.5-5.0); AMMONIA < 10 umol/L (11-32); ASPARTATE AMINOTRANSFERASE 42 U/L (10-37); BILIRUBIN,DIRECT 0.2 mg/dL (0.0-0.3); BILIRUBIN,TOTAL 0.8 mg/dL (0.2-1.0); CREATINE KINASE, TOTAL 241 U/L (21-232); TOTAL PROTEIN, SERUM 8.7 g/dL (6.0-8.3)
[2024-03-15] MEDS ORDERED: CEPH500B PO (02:34)
[2024-03-15 03:11] VITALS: BP 108/52; PULSE 84; RESP 18; TEMP 98; O2SAT 98
--- NOTE | 2024-03-15 06:07 | EKG ---
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
--- NOTE | 2024-03-15 09:02 | HMCIMG ---
CHEST 1VW HISTORY: Shortness of breath COMPARISON: 06/19/2023 FINDINGS: A frontal projection of the chest was obtained. No acute pulmonary infiltrates is seen. The heart is borderline enlarged. Right venous catheter is seen with distal tip in the plane of the atriocaval junction. No evidence of aortic calcification is seen. IMPRESSION: 1. No acute pulmonary infiltrate is seen.
== END 2024-03-15 03:12 | disposition home or self-care (01) ==
LOC: EDH 00:31
DX: I12.9 Hypertensive chronic kidney disease with stage 1 through stage 4 chronic kidney disease, or unspecified chronic kidney disease (principal); N18.9 Chronic kidney disease, unspecified; N39.0 Urinary tract infection, site not specified; E86.0 Dehydration; Z79.52 Long term (current) use of systemic steroids; Z79.624 Long term (current) use of inhibitors of nucleotide synthesis; Z79.631 Long term (current) use of antimetabolite agent; Z79.69 Long term (current) use of other immunomodulators and immunosuppressants; Z79.899 Other long term (current) drug therapy; Z88.5 Allergy status to narcotic agent
CPT/HCPCS: 99285; 70450; 96374; 71045; 96375; 82550; 80076; 84484; 80048; 80305; 82140; 83690; 85025; 87086; 36415; 74176; 93005; 81001; J7030; J2405; J2470